=== PATIENT | female | born 1950 | race Caucasian/White ===

== ENCOUNTER → 2023-10-28 06:27 | Day surgery (SDC) | payer MEDICARE, OTHER, SELFPAY ==
[2023-10-28 08:16] VITALS: BP 116/69
[2023-10-28 08:32] VITALS: BMI 28.7
[2023-10-28 08:33] VITALS: BMI 28.7
[2023-10-28 09:41] VITALS: BP 104/60
[2023-10-28 09:45] VITALS: BP 122/66
[2023-10-28 10:00] VITALS: BP 99/48
== END ==
LOC: SDS 06:27
PROVIDERS: ATTENDING PHYSICIAN Internal Medicine Gastroenterology
DX: K22.2 Esophageal obstruction (principal); R13.10 Dysphagia, unspecified
CPT/HCPCS: 43249; C1726

== ENCOUNTER → 2023-12-22 09:15 | Outpatient (REF) | payer MEDICARE, OTHER, SELFPAY | LOC: HWRAD 09:15 | PROVIDERS: ATTENDING PHYSICIAN Internal Medicine Hematology & Oncology; FAMILY PHYSICIAN Family Medicine | DX: C34.11 Malignant neoplasm of upper lobe, right bronchus or lung (principal); D63.8 Anemia in other chronic diseases classified elsewhere; R59.0 Localized enlarged lymph nodes; Z45.2 Encounter for adjustment and management of vascular access device; R53.82 Chronic fatigue, unspecified; C79.31 Secondary malignant neoplasm of brain | CPT/HCPCS: 71260; Q9967 ==

== ENCOUNTER 2023-12-26 06:15 | Day surgery (SDC) | payer MEDICARE, OTHER, SELFPAY ==
[2023-12-26 09:46] VITALS: BMI 26.5
[2023-12-26 09:47] VITALS: BP 117/70
[2023-12-26 10:36] VITALS: BP 92/57
[2023-12-26 10:45] VITALS: BP 99/67
[2023-12-26 11:00] VITALS: BP 119/64
[2023-12-26 11:07] VITALS: BP 122/70
== END 2023-12-26 11:20 | disposition home or self-care (01) ==
LOC: SDS 06:15
PROVIDERS: ATTENDING PHYSICIAN Internal Medicine Gastroenterology
DX: K22.89 Other specified disease of esophagus (principal); T18.128A Food in esophagus causing other injury, initial encounter; Y93.89 Activity, other specified; K22.2 Esophageal obstruction; R13.10 Dysphagia, unspecified
CPT/HCPCS: 43249; 43247; 88305; C1726

== ENCOUNTER → 2024-01-13 13:54 | Outpatient (REF) | payer MEDICARE, OTHER, SELFPAY ==
[2024-01-13 14:10] VITALS: BP 112/74; BP_SYST 92
[2024-01-13 14:55] VITALS: BP 120/70; BP_SYST 70
[2024-01-13 15:13] VITALS: BP 120/70
== END ==
LOC: RADI 13:54
PROVIDERS: ATTENDING PHYSICIAN Internal Medicine Hematology & Oncology
DX: Z45.2 Encounter for adjustment and management of vascular access device (principal); Z92.21 Personal history of antineoplastic chemotherapy; Z85.118 Personal history of other malignant neoplasm of bronchus and lung
CPT/HCPCS: 36590; 77001

== ENCOUNTER 2024-01-22 06:19 | Day surgery (SDC) | payer MEDICARE, OTHER, SELFPAY ==
[2024-01-22 08:50] VITALS: BP 149/91
[2024-01-22 08:53] VITALS: BMI 25.4
--- NOTE | 2024-01-22 08:55 | PTCARENOTE ---
Attempted suicide at 12 years old. No suicidal thoughts recently.
[2024-01-22 09:55] VITALS: BP 145/78
[2024-01-22 10:00] VITALS: BP 143/79
[2024-01-22 10:01] VITALS: BP 145/78
[2024-01-22 10:15] VITALS: BP 143/86
[2024-01-22 10:30] VITALS: BP 140/76
== END 2024-01-22 10:40 | disposition home or self-care (01) ==
LOC: SDS 06:19
PROVIDERS: ATTENDING PHYSICIAN Internal Medicine Gastroenterology
DX: K22.70 Barrett's esophagus without dysplasia (principal); K22.2 Esophageal obstruction; K44.9 Diaphragmatic hernia without obstruction or gangrene; R13.10 Dysphagia, unspecified
CPT/HCPCS: 43249; C1726

== ENCOUNTER 2024-02-23 06:58 | Day surgery (SDC) | payer MEDICARE, OTHER, SELFPAY ==
[2024-02-23 10:00] VITALS: BP 122/84
[2024-02-23 10:15] VITALS: BMI 26.0
[2024-02-23 10:28] VITALS: BMI 26.0
[2024-02-23 11:15] VITALS: BP 104/67
[2024-02-23 11:16] VITALS: BP 104/67
[2024-02-23 11:30] VITALS: BP 121/87
[2024-02-23 11:55] VITALS: BP 127/76
== END 2024-02-23 12:05 | disposition home or self-care (01) ==
LOC: SDS 06:58
PROVIDERS: ATTENDING PHYSICIAN Internal Medicine Gastroenterology
DX: R13.10 Dysphagia, unspecified (principal); K44.9 Diaphragmatic hernia without obstruction or gangrene; K22.2 Esophageal obstruction; K22.70 Barrett's esophagus without dysplasia
CPT/HCPCS: 43249; C1726

== ENCOUNTER 2024-05-24 18:32 | Emergency (ER) | payer MEDICARE, OTHER, SELFPAY ==
[2024-05-24 18:35] VITALS: BP 144/95
[2024-05-24 19:14] VITALS: BMI 26.7
--- NOTE | 2024-05-24 21:17 | ED.MUSCINJ ---
HPI-Injury
General
Chief Complaint: Fall
Source: patient
Exam Limitations: none
Time Seen by Provider: 05/24/24 19:04
Nursing documentation reviewed up to this point in time: agreed with
History of Present Illness-Injury
Is this injury a work related problem?: No
Is pt an associate of [facility]/[place]?: No
Initial Injury comments:
Patient to ED for eval s/p trip and fall. States she fell outside of her bathroom, hit left side of face and head on hardwood floor. No LOC. Complains of pain to left face, neck right foot. Injury occurred just CARD BRUSHER
Past History
Past History
ED Past Medical History: Arrthythmia, Cancer and Other
ED Past Surgical History: Orthopedic (Ankle surgery)
Social History
Tobacco: Former smoker
Alcohol: None
Drug: None
Personal: Single
Living: with family
Review of Systems
Review of Systems
Allergies reviewed?: Yes
All Other Systems: ROS reviewed and negative except as documented in HPI and ROS
Constitutional: Reports no symptoms
EENT: Reports no symptoms
Respiratory: Reports no symptoms
Cardiac: Reports no symptoms
ABD/GI: Reports no symptoms
Musculoskeletal: Reports joint pain (face, neck, right foot pain)
Skin: Reports other (hematoma to left orbit, left side of face. Abrasion to right foot)
Neurological: Reports no symptoms
Psychiatric: Reports no symptoms
Musculoskeletal Injury Exam
Musculoskeletal Injury Exam
Left Face:
Pain with Movement?: Moderate
Tender to palpation?: Moderate
Soft tissue swelling?: Moderate
External deformity and angulation?: None
Joint effusion?: None
Contusion?: Moderate
Hematoma-local bleeding into tissue?: Moderate
Strain- Sprain- Tear (Connective tissue injury)?: None
Crepitus with movement?: No
Joint instability?: No
Malalignment/deformity?: No
Range of motion: Full
Distal skin color and temperature: normal-warm & good color
Capillary Refill: normal
Normal distal neurovascular exam?: Yes
Right Foot:
Pain with Movement?: Mild
Tender to palpation?: Mild
Soft tissue swelling?: None
External deformity and angulation?: None
Joint effusion?: None
Contusion?: Moderate
Hematoma-local bleeding into tissue?: Mild
Strain- Sprain- Tear (Connective tissue injury)?: Mild
Crepitus with movement?: No
Joint instability?: No
Malalignment/deformity?: No
Range of motion: Full
Distal skin color and temperature: normal-warm & good color
Capillary Refill: normal
Normal distal neurovascular exam?: Yes
Peripheral Pulses: posterior tibial (right): 3+ and dorsalis pedis (right): 3+
Phy Exam
General Physical Exam
General Presentation: well appearing and no apparent distress
General age: appears stated age
General Skin: warm and dry
General Habitus: normal
General Mental: alert
Neurological Exam
Neurological Exam: alert, oriented x3, CN II-XII intact and no motor deficits
[place] Coma Scale
Eye Opening: Spontaneous
Verbal Response: Oriented
Motor Response: Obeys Commands
GCS Total Score: 15
Musculoskeletal Exam
Musculoskeletal Exam: neuro vasc intact and other (Moving all extremities. No hip, knee, ankle, shoulder ,elbow, wrist pain)
Skin Exam
Skin Exam: normal color, warm/dry, no rash and other (hematoma to left orbit, left cheek)
Psychiatric Exam
Psychiatric Exam: normal mood/affect
Injury Course
Orders/Labs/Results
Orders:
Orders
05/24/24 18:45
CT Head W/o Iv Contrast Urgent
Comment: on eliquis
Reason For Exam: fall
05/24/24 19:24
Facial Bones wo Contrast CT [CT Facial Bones W/o Iv Contras] Urgent
Comment:
Reason For Exam: trauma
Foot, Right 3 View [CR Foot - Right Min 3 Views] Urgent
Comment:
Reason For Exam: fall
*Radiology
Radiology exam reviewed: radiology read reviewed
*Pulse Oximetry
Patient hypoxic: no
*Critical Care Note
Total Time (30-74mins, 75-104mins- exclusive of procedures): Not Applicable
ED Attending Note
-
Portions of this chart may have been created with voice recognition software.� Occasional wrong word or��sound alike� substitutions may have occurred due to the inherent limitations of voice recognition software.
Discharge Plan
Departure
Patient Disposition: Home (Routine Discharge)
Date of Disposition: 05/24/24
Time of Disposition: 21:15
Patient with high blood pressure during this ER visit?: No
Condition: Good
Covid-19: Not Applicable
Discharge Problem:
Head injury, Contusion of foot
Instructions: Head Injury in Adults (DC), Contusion (DC), Preventing falls in adults, Using Cold for Pain
Prescriptions:
No Action
Eliquis 5 mg Tablet
5 mg PO BID Qty: 0 0RF
atorvastatin 10 mg Tablet
40 mg PO HS
levothyroxine 112 mcg tablet
112 mcg PO DAILY@0630
potassium chloride 10 mEq Tablet Extended Release
10 meq PO DAILY
ferrous sulfate 300 mg (60 mg iron)/5 mL Liquid
300 mg PO Q OTHER DAY
lansoprazole 30 mg Capsule,Delayed Release(Dr/Ec)
30 mg PO DAILY
Cefuroxime
500 mg PO DAILY
amiodarone 200 mg Tablet
200 mg PO DAILY
furosemide 20 mg Tablet
10 mg PO BID
Referrals:
UNKNOWN - PT DOES,NOT KNOW [Family Provider] -
Activity Restrictions/Additional Instructions:
Follow up with your family doctor.
Interventions
Interventions:
*Risk Screen - Suicide Last Done: 05/24/24 18:35
*General Assessment Last Done: 05/24/24 18:35
*Neglect/Abuse Screening Last Done: 05/24/24 18:35
ED- Fall Risk Assessment Last Done: 05/24/24 19:16
*ED COVID-19 Vaccine History Last Done: 05/24/24 18:42
ED-Musculoskeletal Assessment Last Done: 05/24/24 19:16
ED- Neurological Assessment Last Done: 05/24/24 19:16
ED-Skin Assessment Last Done: 05/24/24 19:16
Discharge Date and Time
Print Language: UGANDAN
== END 2024-05-24 21:50 | disposition home or self-care (01) ==
LOC: EMR 18:32
PROVIDERS: EMERGENCY PHYSICIAN Emergency Medicine; FAMILY PHYSICIAN Family Medicine
DX: S90.31XA Contusion of right foot, initial encounter (principal); S00.12XA Contusion of left eyelid and periocular area, initial encounter; S09.90XA Unspecified injury of head, initial encounter; S90.811A Abrasion, right foot, initial encounter; W01.0XXA Fall on same level from slipping, tripping and stumbling without subsequent striking against object, initial encounter; Y92.008 Other place in unspecified non-institutional (private) residence as the place of occurrence of the external cause; D64.9 Anemia, unspecified; I48.91 Unspecified atrial fibrillation; Z85.841 Personal history of malignant neoplasm of brain; Z85.118 Personal history of other malignant neoplasm of bronchus and lung; Z87.891 Personal history of nicotine dependence; Z79.01 Long term (current) use of anticoagulants; Z88.2 Allergy status to sulfonamides; Z88.8 Allergy status to other drugs, medicaments and biological substances
CPT/HCPCS: 99284; 70450; 70486; 73630

== ENCOUNTER 2024-06-03 22:59 | Inpatient (IN) | payer MEDICARE, OTHER, SELFPAY ==
[2024-06-03] VITALS (8 sets, daily range): BP systolic 85–127; BP diastolic 55–76; BMI 27.9
[2024-06-03 17:52] LABS: Hematocrit 39.6 % (37.0-47.0); Mean Corp Hgb Conc. 35.4 g/dL (33.0-37.0); Mean Corpuscular Hgb 30.8 pg (27.0-31.0); Mean Platelet Volume 10.2 fL (7.4-10.4); Platelet Count 199 10^3/uL (130-400); Red Blood Cell Count 4.55 10^6/uL (4.20-5.40); Red Cell Dist. Width 14.7 % (11.5-14.5); White Blood Cell Count 14.4 10^3/uL (4.8-10.8)
[2024-06-03 18:06] LABS: NT-proBNP 737 pg/ml; Troponin I < 0.012 ng/ml
[2024-06-03 18:12] LABS: ALT (SGPT) 37 U/L (0-35); AST (SGOT) 20 U/L (14-36); Albumin 3.6 g/dl (3.5-5.0); Alkaline Phosphatase 107 U/L (38-126); Blood Urea Nitrogen 39 mg/dl (7-17); Calcium 9.2 mg/dl (8.4-10.2); Carbon Dioxide 17 mmol/L (22-30); Chloride 94 mmol/L (98-107); Potassium 4.4 mmol/L (3.5-5.1); Sodium 129 mmol/L (135-145); Total Protein 6.1 g/dl (6.3-8.2); eGFR > 60.00
[2024-06-03 18:23] LABS: Absolute Neutrophils -Man Diff 13.9 10^3/uL (1.4-6.5); Band Neutrophils 15 % (0-3); Segmented Neutrophils 82 % (42-75)
[2024-06-03 18:25] LABS: Lymphocytes 1 % (20-51)
[2024-06-03 18:27] LABS: Monocytes 2 % (2-9); Normal RBC Morphology Yes; Platelets Checked Yes; Total Cells Counted 100
--- NOTE | 2024-06-03 19:00 | ED.GENMED ---
History of Present Illness
General
Chief Complaint: Change in Mental Status
Source: patient and family
Time Seen by Provider: 06/03/24 18:38
History of Present Illness
History of Present Illness:
73-year-old female with past medical history of lung cancer (reportedly in remission), recent craniotomy for brain tumor removal back in March, atrial fibrillation presenting to the emergency department with family for evaluation of reported gradual
decline in patient's functioning and mental status over the last 2+ weeks. Since patient's tumor removal she has had speech difficulties and some cognitive issues but this seems to be worsening. Patient had a fall about a week and a half ago where
she was evaluated here for with no acute abnormalities found however continued progression of weakness, cough, shortness of breath, and intermittent confusion prompted sister to bring patient to the ER for further evaluation. Patient denies any
fevers but does states she will often have a yellowish-orange sputum production. Patient is on prednisone which she has been on since her surgery back in March, sister noting she is not scheduled to stop this until she at least has her MRI which is
scheduled for end of this month. Patient's primary care also prescribed her an antibiotic about 10 days ago which patient finished with some symptomatic improvement but then symptoms restarted and patient was given a prescription for a
cephalosporin which has not provided any relief.
Past History
Past History
ED Past Medical History: Arrthythmia, Cancer and Other
ED Past Surgical History: Brain and Orthopedic (Ankle surgery)
Social History
Tobacco: Former smoker
Alcohol: None
Drug: None
Personal: Single
Living: with family
Review of Systems
Review of Systems
All Other Systems: ROS reviewed and negative except as documented in HPI and ROS
Phy Exam
Physical Exam
Physical Exam:
GENERAL: Alert , in no apparent distress, pleasant and answers questions appropriately
HEAD: Older appearing ecchymosis along the left side of her face
EYE: Clear conjunctiva
NECK: Supple
ENT: o/p clr, mmm.
CARDIAC: Intermittently tachycardic rate and rhythm with highest heart rate around 106 on telemetry
LUNGS: Rhonchorous cough, diffuse rhonchi within the posterior lung yoder, no wheezing, no accessory muscle use or tachypnea
ABDOMEN: Soft, without focal tenderness, no r/g, no cvat
NEUROLOGICAL: Alert and oriented x 3
SKIN: Warm and dry, skin intact.
MUSCULOSKELETAL: Bilateral ankle edema, well perfused.
PSYCH: Normal and appropriate interaction.
Scores
Heart Failure Risk
Heart Failure Risk Score: Not Applicable
Heart Score for Chest Pain Patients
STEMI patient?: Not applicable
Withdrawal Assessment of Alcohol
Withdrawal Assessment Completed?: Not applicable
Course
Orders/Labs/Results
Orders:
Orders
06/03/24 17:26
Electrocardiogram (*1) Urgent
Reason for Study: Other
Other Reason for Exam: lower extremity swelling with cough
EKG- Treatment ONCE
CXR2 [CR Chest - 2 Views ] Urgent
Comment:
Reason For Exam: cough with hx lung and brain ca
06/03/24 17:35
Complete Blood Count/With Diff Urgent
Comprehensive Metabolic Panel Urgent
Manual Differential Urgent
NT-proBNP Urgent
Troponin I Urgent
06/03/24 18:56
CT Chest Pe Study Urgent
Comment:
Reason For Exam: hypoxia, AMS, hx lung cancer, cough
06/03/24 18:59
Cefepime HCl [Maxipime] 2,000 mg IV NOW STA
06/03/24 19:05
COVID-19 Antigen Urgent
Source: Nasal Swab
Lactic Acid Q4H
Comment: CANCEL 2nd LACTIC ACID IF 1st LACTIC ACID IS LESS THAN 2
Procalcitonin Urgent
PCT Algorithmm Indication: Sepsis
Blood Culture Routine
BRENDA Source: Blood/Venous
Specimen Description:
Blood Culture Urgent
BRENDA Source: Blood/Venous
Specimen Description:
06/03/24 19:16
Vancomycin [Vancocin] 2,000 mg 0.9% Sodium Chloride 500 ml [Nss] 500 ml IV NOW
06/03/24 19:22
0.9% Sodium Chloride 1000 ml [Nss] 2,300 ml IV NOW STA
06/03/24 21:51
Admit/Transfer Patient As Directed
Co-Sign Provider:
Level of Care: Inpatient admission
Assign to:: IMU- Intermediate Care
Physician / Group: Hospitalist
Diagnosis: Pneumonia
Reason for Hospitalization: Hypoxia, pneumonia
Expected length of stay greater than two midnights?: Yes
ELOS- Estimated Length of Stay in days: 2
I certify the patient meets the requirements for IP care: Yes
06/03/24 21:52
Code Status As Directed
Resuscitation Status: Full Code
PRN Pain Medication Management As Directed
May give lesser potent ordered pain med per pt: Yes
preference::
Protocol:: Medication orders for pain may be administered in a
manner that supports deferring to patient preference
when the pt is:
- Requesting an ordered lesser potent pain medication.
Least to most potent pain medications are defined
as: acetaminophen < NSAID < tramadol < opioids
(morphine, oxycodone, hydromorphone).
- Requesting a lesser dose of the same medication IF
ORDERED.
- Requesting a less intrusive route of administration
if both routes are prescribed by the provider (PO <
IV).
06/03/24 22:00
Atorvastatin [Lipitor] 10 mg PO HS
Flush (0.9% Sodium Chloride) [Flush (Nss)] See Dose Instructions IV PER PROTOCOL
06/03/24 22:49
Lactic Acid Q4H
Comment: CANCEL 2nd LACTIC ACID IF 1st LACTIC ACID IS LESS THAN 2
06/04/24 01:54
Acetaminophen [Tylenol] 650 mg PO Q4HPRN PRN
Albuterol Nebs [Ventolin Nebules] 2.5 mg INH R Q4HPRN PRN
Guaifenesin/Dextromethorphan [Robitussin Dm] 5 ml PO Q4HPRN PRN
Ondansetron Injectable [Zofran] 4 mg IV Q6HPRN PRN
06/04/24 01:54
Consult Notification Routine
Specialty to Notify: Oncology
Date consulting provider notified: 06/04/24
Time consulting provider notified: 07:21
Notified:: Provider
ONCOLOGY CONSULT Routine
Consulting Provider: Ashley Rojas
Was physician already notified: No
Reason for consult: recurrence of metastatic lung ca
PULMONARY CONSULT Routine
Consulting Provider: Jamison Jaffe
Was physician already notified: Yes
Reason for consult: complicated pna, recurrent lung ca?
VTE Contraindication Routine
VTE Mechanical Device Contraindication: Medical Contraindication
Pharmocologic Contraindication: Medical Contraindication
Respiratory Culture/Gram Stain Routine
BRENDA Source: Sputum
Specimen Description:
Activity As Directed
Activity Level: Out of Bed-Early Mobility
Intake/ Output As Directed
Frequency: Per unit guidelines
Vital Signs As Directed
Frequency: Per unit guidelines
Weight As Directed
Frequency: Once
Comment: on admission
O2 Therapy [RESP] Routine
Nasal Cannula Liter Flow: 4 LPM
Titrate/Wean O2 to maintain O2 sat greater than (%): 93
Special Instructions: Wean as tolerated
Pt Eval And Treat Routine
Activity Level: With Assistance
06/04/24 02:00
Cefepime HCl [Maxipime] 2,000 mg IV Q8H
06/04/24 05:29
Basic Metabolic Panel IN AM
Complete Blood Count/No Diff IN AM
Serum Osmolality IN AM
TSH Reflex To Free T4 IN AM
06/04/24 06:00
Levothyroxine [Synthroid] 112 mcg PO DAILY @ 0600
06/04/24 08:00
Amiodarone [Pacerone] 200 mg PO DAILY
Apixaban [Eliquis] 5 mg PO BID
Levetiracetam [Keppra] 500 mg PO BID
Pantoprazole [Protonix] 40 mg PO DAILY
06/04/24 09:49
Urine Osmolality Random [Osmolality, Random Urine] Routine
Date Specimen was Collected: 06/04/24
Time Specimen was Collected: 09:41
Legionella Urinary Antigen Routine
BRENDA Source: Urine
Specimen Description:
Abnormal Lab Results
06/03/24 06/03/24
17:35 19:05
WBC 14.4 H 10^3/uL
(4.8-10.8)
RDW 14.7 H %
(11.5-14.5)
Abs Neuts (Manual) 13.9 H 10^3/uL
(1.4-6.5)
Segmented Neutrophils 82 H %
(42-75)
Band Neutrophils 15 H %
(0-3)
Lymphocytes (Manual) 1 L %
(20-51)
Sodium 129 L mmol/L
(135-145)
Chloride 94 L mmol/L
(98-107)
Carbon Dioxide 17 L mmol/L
(22-30)
BUN 39 H mg/dl
(7-17)
Lactic Acid 2.5 H mmol/L
(0.7-2.0)
ALT 37 H U/L
(0-35)
Total Protein 6.1 L g/dl
(6.3-8.2)
Procalcitonin 0.59 H ng/ml
(0.0-0.25)
06/03/24 17:35
06/03/24 17:35
Vital Signs
Initial and Last Documented VS:
Initial Vital Signs
Temp Pulse Resp BP Pulse Ox
98.3 F 107 18 101/76 98
06/03/24 17:11 06/03/24 17:11 06/03/24 17:11 06/03/24 17:11 06/03/24 17:11
Last Documented Vital Signs
Temp Pulse Resp BP Pulse Ox
97.9 F 91 17 91/61 94
06/04/24 11:20 06/04/24 12:52 06/04/24 11:45 06/04/24 12:52 06/04/24 12:55
Cylinder Inspector And Tester consulted with Physician
Cylinder Inspector And Tester consulted with physician?: Yes
Name of Physician Consulted: Anai
MDM/Problems Addressed
Differential Diagnosis Includes:
Pneumonia, PE, recurring malignancy, sepsis, electrolyte derangement
MDM/Problems Addressed:
73-year-old female presenting to the emergency department for evaluation of multitude of symptoms but patient noting biggest concern is cough, shortness of breath and generalized weakness. Patient has been on 2 separate antibiotics with no
improvement of her cough. Has a noted history for cancer as well as taking daily steroids since her tumor removal. Patient is afebrile here however during my exam patient is hypotensive, mildly tachycardic and had an oxygen saturation dropped to
82% on room air. Patient was immediately placed on nasal cannula at 2 L which responded to about 86% thus increasing to 4 L with good response between 92 and 96%. Patient's lungs have diffuse rhonchi and given her presenting symptoms I suspect
pneumonia to be very high on the differential. Given her recent surgery combined with her cancer history will obtain CTA to rule out PE. Labs have been initiated in triage which reveal a leukocytosis, bandemia, prerenal azotemia. Patient has
negative troponin and BNP. Chest x-ray was also ordered which did not show any acute abnormalities. Given her history combined with presentation today I do feel patient is most likely to be admitted for further evaluation.
Chronic conditions affecting care: Immunosuppressed and Cancer
*Radiology
Radiology exam reviewed: radiology read reviewed
*Pulse Oximetry
Patient hypoxic: yes
*EKG
Interpreted by ED Provider?: Yes
Comparison EKG: changes noted
Heart Rate: 106
Rate: tachycardiac
Rhythm: sinus
[place]: normal axis
Ischemia: T-wave inversion (Leads I and aVL)
*Nurse Companion Interpretation
Rate: tachycardiac
Rhythm: sinus
*Critical Care Note
Total Time (30-74mins, 75-104mins- exclusive of procedures): 30
comment:
Critical care statement: A total of 30 minutes of critical care time was provided for this patient. This includes management of unstable vital signs, evaluation of the patient at bedside, reviewing the patient's pertinent medical records, discussion
with consultants, review of old EKGs and review of pertinent medical records. This time with separate from time utilized to perform the aforementioned documented procedures
Data Reviewed
Review of Other/Old Records Reveals: Labs and Radiology Studies
Source: patient and family
Patient Management
Discussion with other providers: Hospitalist
Escalation/DeEscalation of care consider admission/obs:
Patient's chest CT is concerning for recurrence of right lung pulmonary neoplasm with new pulmonary metastatic disease. There is also likely underlying infectious/inflammatory bronchiolitis throughout the right lower lobe. Given patient's
suspected infectious etiology will continue with antibiotics but will also need oncology consultation. Patient remains slightly hypotensive despite IV fluid resuscitation. Initial plan will be for likely IMU/ICU for close monitoring and possible
need for pressors if patient remains hypotensive. Hospitalist team was notified and accepts for continued evaluation and treatment. I did update patient and provided her family with a printout of CT report. They are previously known to Dr. Wheeler
from oncology.
ED Attending Note
-
Portions of this chart may have been created with voice recognition software.� Occasional wrong word or��sound alike� substitutions may have occurred due to the inherent limitations of voice recognition software.
Discharge Plan
Departure
Patient Disposition: Admit
Date of Disposition: 06/03/24
Time of Disposition: 20:34
Presentation/result/management discussed w/ accepting MD/DO: Hospitalist
Discharge Problem:
Pneumonia, Sepsis, Hypoxia
Interventions
Interventions:
*Risk Screen - Suicide Last Done: 06/03/24 17:11
*Neglect/Abuse Screening Last Done: 06/03/24 17:11
ED- Fall Risk Assessment Last Done: 06/03/24 19:15
*ED COVID-19 Vaccine History Last Done: 06/04/24 01:10
*Nursing Disposition Last Done: 06/04/24 01:04
ED- Pulmonary Assessment Last Done: 06/03/24 19:15
ED- Neurological Assessment Last Done: 06/03/24 19:15
ED- Cardiac Assessment Last Done: 06/03/24 19:15
Discharge Date and Time
Discharge Date/Time: 06/04/24 01:04
[2024-06-03] MEDS: MAXIPIME 2000 MG IV (19:13)
[2024-06-03 19:28] LABS: Lactic Acid 2.5 mmol/L (0.7-2.0)
[2024-06-03 19:36] LABS: COVID-19 Antigen Negative (Negative)
[2024-06-03] MEDS: VANCOCIN 540 MG IV (19:39)
[2024-06-03] MEDS: NSS 2300 ML IV (19:41)
[2024-06-03 20:04] LABS: Procalcitonin 0.59 ng/ml (0.0-0.25)
--- NOTE | 2024-06-03 21:32 | HPS.HSE ---
Family Physician
-
Family Physician: Saul Long
Chief Complaint
-
Weakness and lethargy, cough
History of Present Illness
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
to the emergency department with worsening cough and lethargy.
Patient reported that she had scar tissue resection (craniotomy) at [facility] in March. She is otherwise been feeling well since then. She had a recent fall with minor trauma to the left face. However about 2 weeks ago she noticed a persistent
cough. She followed up with her primary care doctor who prescribed 1 week of antibiotics (cefuroxime). She did not particularly improve and she was prescribed a second week. During taking this secondary the patient noticed increase production
from cough. She also noticed that at physical therapy she felt more tired than usual. She also had slightly increased confusion. Patient denied having fevers or chills at home. This cyst was approximately reported that she did have bilateral
lower extremity swelling. She was started on low-dose leg relief. In the past she had been on low-dose diuretics but was discontinued due to improvement peripheral edema.
Upon arrival in the ED the patient was hypoxic to 80s on room air. Blood pressure was initially soft but at my visit was 117/58, temperature was 98.3, pulse was 96. ECG w/ sinus tach. Trop negative. Chest x-ray was clear. She however had a CT of
the chest which showed a spiculated 1.5 cm left lung nodule as well as a right lung groundglass opacity with nodules concerning for lung cancer with mets. There is also concern for superimposed infection. She had leukocytosis to 14,000 hemoglobin
and blood counts were normal. Sodium was 129 and a BUN was 39. The rest of her chemistries were within normal limits. Lactate was 2.5, troponin was 0.012. Procal was slightly elevated. COVID test was negative.
Medical History
Past Medical History
Past Medical History: Reports Arrhythmia (pAFIB), CHF (HFpEF), Hypercholesterolemia and Hypothyroidism
Additional Past Medical History:
Lung Ca previously in remission
Seizure d/o
GERD
Past Surgical History: Reports Brain
Social History
Tobacco: Former Smoker
Alcohol: None
Drug: None
Personal: Single
Living: With Family
Employment: Not Employed
Family History
Family History: Not pertinent
Allergies / Home Medications
Allergies reflects when Allergies were last updated in [employer].
Home Medications with original date entered in [employer]
Allergy/Medication List:
Allergies
Allergy/AdvReac Type Severity Reaction Status Date / Time
paclitaxel [From Taxol] Allergy Anaphylaxis Verified 06/03/24 17:21
Sulfa (Sulfonamide Allergy Unknown Verified 06/03/24 17:21
Antibiotics)
Home Medications
apixaban 5 mg tablet (Eliquis) 5 mg PO BID Blood Clot Prevention/Tx #0 tabs 06/19/23
atorvastatin 10 mg tablet 10 mg PO HS High Cholesterol 08/01/23
levothyroxine 112 mcg tablet 112 mcg PO DAILY Thyroid 09/18/23
amiodarone 200 mg tablet 200 mg PO DAILY 02/23/24
cefuroxime axetil 500 mg tablet 500 mg PO BID 02/23/24
furosemide 20 mg tablet 20 mg PO BID 02/23/24
dexamethasone 2 mg tablet 2 mg PO BID 06/03/24
ferrous sulfate 220 mg (44 mg iron)/5 mL oral solution 220 mg PO Q48H 06/03/24
levetiracetam 500 mg tablet 500 mg PO BID 06/03/24
omeprazole 40 mg capsule,delayed release 40 mg PO TID 06/03/24
potassium chloride 20 mEq/15 mL oral liquid 10 meq PO BID 06/03/24
Review of Systems
-
History Source: Patient and Family
Constitutional: Reports Fatigue
EENT: Reports No Symptoms
Respiratory: Reports Cough
Cardiac: Reports Other (peripheral edema)
Abdomen/GI: Reports No Symptoms
: Reports No Symptoms
Musculoskeletal: Reports Edema
Skin: Reports No Symptoms
Neurological: Reports No Symptoms
Endocrine: Reports No Symptoms
Hematologic/Lymphatic: Reports No Symptoms
Psych: Reports No Symptoms
Physical Exam
Vital Signs
Vital Signs
Temp Pulse Resp BP Pulse Ox
98.3 F 98 23 117/58 98
06/03/24 17:11 06/03/24 21:00 06/03/24 21:00 06/03/24 21:00 06/03/24 21:22
Physical Exam
General: Conversant
HEENT: NormoCephalic, Anicteric, Atraumatic (Left facial ecchymoses), PERRLA and Oxygen
Respiratory: Decreased Breath Sounds
Cardiac: S1/S2 and Regular Rhythm
Breast: Deferred by me
GI: Soft, Non Tender, Non Distended and Normal Bowel Sounds
Rectal: Deferred by Provider
Genito-urinary: Deferred by me
Musculoskeletal: No Clubbing, No Cyanosis, Edema, Left Lower Extremity and Edema, Right Lower Extremity
Skin: Warm
Neuro: AO x 3
Hematologic/Lymphatic: No Lymphadenopathy
Psych: Calm
Laboratory Results
-
06/03/24 17:35
06/03/24 17:35
Laboratory Results
Lactic Acid 2.5 mmol/L (0.7-2.0) H 06/03/24 19:05
Total Bilirubin 1.0 mg/dl (0.2-1.3) 06/03/24 17:35
AST 20 U/L (14-36) 06/03/24 17:35
ALT 37 U/L (0-35) H 06/03/24 17:35
Alkaline Phosphatase 107 U/L (38-126) 06/03/24 17:35
Troponin I < 0.012 ng/ml 06/03/24 17:35
Data Reviewed
-
Diagnostic Radiology: Image Personally Visualized and interpreted
CT Scan: Report Reviewed by me
Medical Tests (Nuc Med, Echo, EKG etc): Image Personally Visualized and interpreted
Lab Data: Labs Reviewed by me
Impression/Plan
-
IMPRESSION:
PLAN:
1. Hypoxia - Patient with likely recurrent metastatic lung ca with super-imposed infection. Tried on oral abx as an outpatient for 2 weeks with no improvements. Productive cough and leukocytosis without fevers or chills. Negative COVID. Soft BP
in ED with boderline lasix. There is some peripheral edema but no significant pulmonary edema. BNP is non-diagnostic for CHF.
- admit to IMU
- blood cultures, sputum culture, cytology urine legionella ag
- continue vanc and cefepime for now
- supportive care with supplemental oxygen and cough suppression
- prn nebs
- incentive spirometry
- pulmonary
2. Lung Ca - History of Lung CA in remission. Followed by Dr. Arango. Last CT was free of Ca about 6 months ago. But has been having a subacute to chronic non-productive cough that turned productive 4/5 days ago. No hemoptysis. Hyponatremic.
CT suggestive of metastatic dz.
- oncology consultation
- supportive care for now.
3. AFIB - rate controlled
- continue amiodarone
- continue eliquis
4. CHF - CHF w/ pEF. BNP is non-diagnostic. Clinically she apears slightly overloaded. She has just received 30ml/kg NS.
- no iv fluids, hold lasix tonight
- check tsh
- restart lasix 20 mg bid tomorrow if BP stable.
5. Hyponatremia - euvolemic to hypervolemic.
- fluid restriction for now
- check urine osmolality
- tsh as above
DVT PPX - on eliquis
Code Status - She clearly expresses wish to be full code.
[2024-06-03 23:11] LABS: Lactic Acid 1.4 mmol/L (0.7-2.0)
[2024-06-04] VITALS (22 sets, daily range): BP systolic 85–132; BP diastolic 51–83; PULSE 92; O2SAT 98; BMI 27.9; BMI 27.2
[2024-06-04] MEDS: LIPITOR PO (03:13)
[2024-06-04] MEDS: MAXIPIME 2000 MG IV ×3 (03:21→17:26)
[2024-06-04] MEDS: STERILE WATER FOR INJECTION 10 ML IV ×3 (03:22→17:26)
[2024-06-04 05:49] LABS: Osmolality Serum 320 mOsm/kg (275-300)
[2024-06-04 05:55] LABS: Blood Urea Nitrogen 27 mg/dl (7-17); Calcium 8.5 mg/dl (8.4-10.2); Carbon Dioxide 30 mmol/L (22-30); Chloride 102 mmol/L (98-107); Estimated Creatinine Clearance 72 ml/min; Glucose 406 mg/dl (70-99); Hematocrit 41.2 % (37.0-47.0); Hemoglobin 14.3 g/dL (12.0-16.0); Mean Corp Hgb Conc. 34.7 g/dL (33.0-37.0); Mean Corpuscular Hgb 31.8 pg (27.0-31.0); Mean Corpuscular Volume 91.8 fL (81.0-99.0); Mean Platelet Volume 10.5 fL (7.4-10.4); Platelet Count 141 10^3/uL (130-400); Potassium 3.4 mmol/L (3.5-5.1); Red Blood Cell Count 4.49 10^6/uL (4.20-5.40); Red Cell Dist. Width 15.1 % (11.5-14.5); Sodium 140 mmol/L (135-145); White Blood Cell Count 9.9 10^3/uL (4.8-10.8); eGFR > 60.00
[2024-06-04] MEDS: SYNTHROID 112 MCG PO (06:07)
[2024-06-04 06:39] LABS: Hepatitis C Antibody Negative (Negative)
[2024-06-04 06:58] LABS: Free T4 0.87 ng/dl (0.78-2.19)
--- NOTE | 2024-06-04 08:17 | CON.PUL ---
Consultation
Consultation Request
Date/Time Consultation Requested: 06/04/2024 015
Date/Time Consultation Performed: 06/04/2024 - 08
Requesting Provider: Dr. Medellin
Performing Provider: Dr. Jaffe
Reason for Consultation: Hypoxia/Abnormal Chest CT/PNA
Medical History
-
Chief Complaint: Weakness, lethargy + cough
History of Present Illness:
73-year-old female with a past medical history of COPD, right-sided NSCLC (adenocarcinoma) s/p chemo (last chemotherapy given in 2018) + XRT with mets to brain s/p gamma knife radiation, history pneumonia, esophageal stricture s/p esophageal
dilation (September 2023), paroxysmal A-fib on Eliquis, hypothyroidism and history of melanoma who presents with AMS, cough, lower extremity swelling + weakness. She recently fell in her bathroom on 05/24/2024 and has left-sided periorbital
swelling/bruising. Head/facial bone CT from 05/24/2024 shows no acute intracranial abnormality with evidence of left temporal craniotomy. Also no facial bone fracture. Her cough has been ongoing for about 2-3 weeks now. She saw her PCP recently
who prescribed a week of antibiotics (cefuroxime). Second week was prescribed due to minimal improvement. She is also been feeling more confused and lethargic lately. No fevers or chills at home. Lower extremity swelling has also been worsening
as per the patient's sister, Isela. In the ER she was afebrile to 98.3 �F, tachycardic to 107 bpm, breathing at 18-24 breaths/min, BP 101/76 and saturating 98% on room air. Labs showed leukocytosis to 14.4, 15% bands, sodium 129, serum
bicarbonate level 17, lactate 2.5, ALT 37, proBNP 737, troponin negative at <0.012, procalcitonin elevated at 0.59, and COVID antigen negative. Blood cultures were collected. CXR showed RUL scarring with no acute cardiopulmonary process. CT of
the chest then done showing no acute PE showing concern for recurrent right lung metastatic disease with superimposed infectious/inflammatory bronchiolitis throughout the right lower lobe. Patient given IVF with 2.3 L of NS 0.9%, cefepime and IV
vancomycin. Patient admitted to the IMU under the hospitalist and pulmonary consulted for additional management/recommendations.
When I saw the patient she was sitting in a chair, on 2 L/min nasal cannula, saturating 93%. Heart rate 92 and BP 99/65. Patient's sister, Isela, at bedside, and all questions were answered. Patient feels okay although still has a cough and
feels weak. She denies chest pain, CHIRINOS, abdominal pain, nausea, fevers or chills.
PMHx: COPD, history of right lung adenocarcinoma s/p chemo + XRT, history of pneumonia, esophageal stricture s/p EGD, paroxysmal A-fib on Eliquis, hypothyroidism, history of food impaction (12/2019), history of melanoma, voice hoarseness
PSHx: Left-sided broken ankle s/p pins + plate placement, melanoma s/p excision, esophageal dilation (09/2023)
Past Medical History
Past Medical History: Other (Above as per HPI)
Past Surgical History: Other (Above as per HPI)
Social History
Tobacco: Former Smoker ([id number] history, quit 2018)
Alcohol: None
Drug: None
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
Family History
Family History: CAD (Mother), Cancer (Father: Prostate cancer; mother: History of esophageal cancer; Sister: Melanoma) and Hypertension (Sister)
Allergies / Home Medications
Allergies
Allergy/AdvReac Type Severity Reaction Status Date / Time
paclitaxel [From Taxol] Allergy Anaphylaxis Verified 06/03/24 17:21
Sulfa (Sulfonamide Allergy Unknown Verified 06/03/24 17:21
Antibiotics)
Home Medications
�Medication �Instructions �Recorded �Confirmed �Last Taken �Type
apixaban 5 mg tablet (Eliquis) 5 mg PO BID Blood Clot 06/19/23 06/03/24 06/03/24 Rx
Prevention/Tx #0 tabs
atorvastatin 10 mg tablet 10 mg PO HS High Cholesterol 08/01/23 06/03/24 06/02/24 History
levothyroxine 112 mcg tablet 112 mcg PO DAILY Thyroid 09/18/23 06/03/24 06/03/24 History
amiodarone 200 mg tablet 200 mg PO DAILY 02/23/24 06/03/24 06/03/24 History
cefuroxime axetil 500 mg tablet 500 mg PO BID 02/23/24 06/03/24 06/03/24 History
furosemide 20 mg tablet 20 mg PO BID 02/23/24 06/03/24 06/03/24 History
dexamethasone 2 mg tablet 2 mg PO BID 06/03/24 06/03/24 06/03/24 History
ferrous sulfate 220 mg (44 mg 220 mg PO Q48H 06/03/24 06/03/24 Unknown History
iron)/5 mL oral solution
levetiracetam 500 mg tablet 500 mg PO BID 06/03/24 06/03/24 06/03/24 History
omeprazole 40 mg capsule,delayed 40 mg PO TID 06/03/24 06/03/24 06/03/24 History
release
potassium chloride 20 mEq/15 mL 10 meq PO BID 06/03/24 06/03/24 06/03/24 History
oral liquid
Review of Systems
-
History Source: Patient
All other systems: Negative unless noted (12 point ROS performed and is negative unless mentioned above.)
Vitals / Labs / Diagnostic Testing
Vital Signs
Temp Pulse Resp BP Pulse Ox
97.5 F 87 16 98/60 95
06/04/24 08:28 06/04/24 08:00 06/04/24 08:00 06/04/24 08:00 06/04/24 08:00
Lab Data
06/04/24 05:29
06/04/24 05:29
Diagnostic Testing:
Physical Exam
-
HEENT: Normocephalic and Anicteric
Cardiovascular: S1/S2 and Peripheral Edema (+2 lower extremity pitting edema (L >R))
Respiratory: Wheeze (negative), Rales (Bilaterally), Rhonchi (Bilaterally) and Non-Labored Respirations
GI: Soft, Non Distended, Non Tender and Normal Bowel Sounds
Neurology: AO x 3 and Tremors (negative)
Skin: Warm and Dry
General: Respiratory Distress (negative), Comfortable, Chills (negative) and Sweats (negative)
Assessment
-
Assessment: 73-year-old female with a past medical history of COPD, right-sided NSCLC (adenocarcinoma) s/p chemo (last chemotherapy given in 2018) + XRT with mets to brain s/p gamma knife radiation, history pneumonia, esophageal stricture s/p
esophageal dilation (September 2023), paroxysmal A-fib on Eliquis, hypothyroidism and history of melanoma who presents with AMS, cough, lower extremity swelling + weakness. She recently fell in her bathroom on 05/24/2024 and has left-sided periorbital
swelling/bruising. Head/facial bone CT from 05/24/2024 shows no acute intracranial abnormality with evidence of left temporal craniotomy. Also no facial bone fracture. Her cough has been ongoing for about 2-3 weeks now. She saw her PCP recently
who prescribed a week of antibiotics (cefuroxime). Second week was prescribed due to minimal improvement. She is also been feeling more confused and lethargic lately. No fevers or chills at home. Lower extremity swelling has also been worsening
as per the patient's sister, Isela. In the ER she was afebrile to 98.3 �F, tachycardic to 107 bpm, breathing at 18-24 breaths/min, BP 101/76 and saturating 98% on room air. Labs showed leukocytosis to 14.4, 15% bands, sodium 129, serum
bicarbonate level 17, lactate 2.5, ALT 37, proBNP 737, troponin negative at <0.012, procalcitonin elevated at 0.59, and COVID antigen negative. Blood cultures were collected. CXR showed RUL scarring with no acute cardiopulmonary process. CT of
the chest then done showing no acute PE showing concern for recurrent right lung metastatic disease with superimposed infectious/inflammatory bronchiolitis throughout the right lower lobe. Patient given IVF with 2.3 L of NS 0.9%, cefepime and IV
vancomycin. Patient admitted to the IMU under the hospitalist and pulmonary consulted for additional management/recommendations.
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
hoarseness
Impression:
#RLL pneumonia with suspicion for recurrent RUL lung cancer
#Sepsis without shock due to above
#New SAMUEL spiculated pulmonary nodule measuring 15mm)
#Hypokalemia
#Hyperglycemia
#Large hiatal hernia with severe esophageal fluid distention
#Subclinical hypothyroidism
#Chronic RLL pleural effusion
#COPD/centrilobular emphysema with acute exacerbation
#Chronic steroid use with Decadron 2 mg PO BID
#Former tobacco smoker (60-PY Hx; quit 2018)
Plan:
- Continue with broad-spectrum antibiotics � currently on cefepime/vancomycin
- Follow up sputum Cx and blood Cx
- If MRSA swab negative then DC IV vanco
- Keep MAP>65
- Repeat CT chest without contrast in 4-6 weeks to follow pneumonia to resolution and discuss repeat biopsy if lung cancer recurrence is suspected
- If repeat CT chest is stable with no concern for recurrent lung cancer, she does qualify for annual LDCT chest for lung cancer screening
- Maintain SpO2 88-95% with supplemental O2 and wean as tolerated
- Start systemic steroids with prednisone
- DuoNebs with budesonide BID and prn albuterol for breakthrough symptoms
- Incentive spirometer encouraged 10x per hour for at least 4 hrs a day
- Raise LT4 dose to 137mcg
- Continue amiodarone with goal HR<110
- Replete electrolytes with K>4, Mg>2
- Maintain euglycemia with goal BG >100 and <180; start ISS moderate resistance; low threshold to start lantus
- DVT ppx: Eliquis
Pulmonary service will continue to follow along. She will need repeat CT chest in about 4-6 weeks and outpatient follow-up. She already follows with us in the office with Dr. Frias, last visit on 10/24/2023.
Data:
CTA Chest 06/03/2024:
1. No evidence of pulmonary embolism.
2. Interval progression/recurrence of right lung pulmonary neoplasm with new pulmonary metastatic disease. Probable superimposed infectious/inflammatory bronchiolitis throughout the right lower lobe.
Total time spent today was 55 minutes for this encounter. Time includes reviewing laboratory test/imaging results, reviewing pertinent medical records, obtaining and reviewing medical history, performing an appropriate exam, ordering medications,
tests and procedures. Time also includes documentation of this encounter, coordinating patient care and communicating with other healthcare professionals. Total time does not include separately billed tests performed on this date of service.
--- NOTE | 2024-06-04 09:00 | PTCARENOTE ---
Assumed care of pt. VSS. Pt A&Ox2. VSS. 4L NC applied with rattling, nonproductive cough. SpO2 94-96%. Tolerating meal/meds without issue. Purwick in place draining clear/yellow urine. L facial bruise present, scattered scabs BSS SOLUTION ARCHITECT, MASD groin
present. Fungal powder requested from Hospitalist. Sister at bedside. Plan of care discussed
--- NOTE | 2024-06-04 09:06 | PHA.VAN.IN ---
Assessment
- Assessment
Renal Function: Appears similar to baseline
Concomitant Antimicrobials: cefepime
AUC Dosing Plan
- Dosing Variables
Dosing Weight (kg): 74.2
Dosing CrCl (ml/min): 72
Vd coefficient (L/kg): 0.7
- Empiric Dosing
Initial / Loading Dose: 2000 mg x 1 LD 06/03 19:39
Maintenance Regimen: 750 mg q12h - to start this AM
Estimated Peak (mcg*h/mL): 465
Estimated Trough (mcg/ml): 13.3
Estimated Half Life (H): 10.8
- Monitoring
No levels ordered at this time: consider levels when pt reaches steady state
Pharmacokinetics Vancomycin I
- -
Patient Age: 73
Patient Sex: Female
Vancomycin Day #: 1
Indication: Pulmonary/Respiratory
Requesting Provider: Lacie
Pertinent Antimicrobial Allergies:
sulfonamide antibiotcs
Height / Weight:
Height 5 ft 5 in
Actual Weight 74.2 kg
Pertinent Past Medical History: hx lung Ca; prior mets to brain; recent tx w/ OP abx x 2 wks with no improv
- Vital Signs / Lab Results
Temp Pulse Resp BP Pulse Ox
97.5 F 87 16 98/60 95
06/04/24 08:28 06/04/24 08:00 06/04/24 08:00 06/04/24 08:00 06/04/24 08:00
Lab Results - Hematology
06/03/24 06/04/24
17:35 05:29
WBC 14.4 H 9.9
Band Neutrophils 15 H
Lab Results - Chemistry
06/03/24 06/04/24
17:35 05:29
BUN 39 H 27 H
Creatinine 0.8 0.7
Estimated Creat Clear 72
Albumin 3.6
06/03/24 06/03/24
19:05 22:49
Lactic Acid 2.5 H 1.4
[2024-06-04] MEDS: PROTONIX 40 MG PO (09:17)
[2024-06-04] MEDS: ELIQUIS 5 MG PO ×2 (09:17→19:24)
[2024-06-04] MEDS: PACERONE 200 MG PO (09:18)
[2024-06-04] MEDS: KEPPRA 500 MG PO ×2 (09:18→19:23)
[2024-06-04] MEDS: VANCOCIN 150 IV (09:18)
[2024-06-04] MEDS: ProAmatine 2.5 MG PO ×3 (09:50→13:56)
[2024-06-04 10:51] LABS: Osmolality Urine 772 mOsm/kg (300-900)
--- NOTE | 2024-06-04 10:53 | CON.ONC ---
Documented by User: Gonzalo Veras DO, Resident 06/04/24 12:23
Impression
Impression
73-year-old female with history of stage IIIb lung cancer with brain metastasis, previously in remission, now presenting with concern of recurrence of lung cancer.
Plan
Plan
Patient to see Dr. Wheeler outpatient in the clinic for evaluation. PET/CT required for restaging.
Continue all management per primary medical team
Patient History
History of Present Illness
Patient is a 73-year-old female with past medical history of arrhythmia, GERD, seizures and stage IIIb lung cancer, previously diagnosed in 2018, s/p chemoradiation and development of brain metastasis s/p craniotomy in 2021, both in remission,
presenting to [facility] with decline in mental and functional status over the last 2 weeks. She is a known patient of Dr. Wheeler, last seen in December 2023, and underwent carboplatin and Abraxane treatment in [address] Genaro Dimas.
CT of chest on 06/03 shows interval progression/recurrence of right lung pulmonary neoplasm with new pulmonary metastatic disease, with superimposed infectious/inflammatory bronchiolitis throughout the right lower lobe. She states her PT provider
stated she was 'weaker' and was not performing as well physically and mentally- prompting hospital admission. She is experiencing SOB, cough, weakness, LE edema. No other symptoms reported.
Past-Medical/Surgical History
Arrhythmia
Lung cancer
GERD
Seizure disorder
Hypothyroidism
Hypercholesterolemia
Craniotomy
Patient Medication
�Medication �Instructions �Recorded �Confirmed �Last Taken �Type
apixaban 5 mg tablet (Eliquis) 5 mg PO BID Blood Clot 06/19/23 06/03/24 06/03/24 Rx
Prevention/Tx #0 tabs
atorvastatin 10 mg tablet 10 mg PO HS High Cholesterol 08/01/23 06/03/24 06/02/24 History
levothyroxine 112 mcg tablet 112 mcg PO DAILY Thyroid 09/18/23 06/03/24 06/03/24 History
amiodarone 200 mg tablet 200 mg PO DAILY 02/23/24 06/03/24 06/03/24 History
cefuroxime axetil 500 mg tablet 500 mg PO BID 02/23/24 06/03/24 06/03/24 History
furosemide 20 mg tablet 20 mg PO BID 02/23/24 06/03/24 06/03/24 History
dexamethasone 2 mg tablet 2 mg PO BID 06/03/24 06/03/24 06/03/24 History
ferrous sulfate 220 mg (44 mg 220 mg PO Q48H 06/03/24 06/03/24 Unknown History
iron)/5 mL oral solution
levetiracetam 500 mg tablet 500 mg PO BID 06/03/24 06/03/24 06/03/24 History
omeprazole 40 mg capsule,delayed 40 mg PO TID 06/03/24 06/03/24 06/03/24 History
release
potassium chloride 20 mEq/15 mL 10 meq PO BID 06/03/24 06/03/24 06/03/24 History
oral liquid
Active Medications
Generic Name Dose Route Start Last Admin
Trade Name Freq PRN Reason Stop Dose Admin
Acetaminophen 650 mg 06/04/24 01:54
Acetaminophen 325 Mg Tablet PO 07/02/24 01:53
Q4HPRN PRN
if temp > 101 F
Albuterol Sulfate 2.5 mg 06/04/24 01:54
Albuterol Nebs 2.5 Mg/3 Ml Ampul INH
R Q4HPRN PRN
shortness of breath/wheezing
Protocol
Amiodarone HCl 200 mg 06/04/24 08:00 06/04/24 09:18
Amiodarone 200 Mg Tablet PO 07/02/24 07:59 200 mg
DAILY MELODY Administration
Apixaban 5 mg 06/04/24 08:00 06/04/24 09:17
Apixaban (Eliquis) 5 Mg Tablet PO 07/02/24 07:59 5 mg
BID MELODY Administration
Atorvastatin Calcium 10 mg 06/03/24 22:00 06/04/24 03:13
Atorvastatin (Lipitor) 10 Mg Tablet PO 07/01/24 21:59 Not Given
HS MELODY
Cefepime HCl 2,000 mg 06/04/24 02:00 06/04/24 09:18
Cefepime Hcl 2,000 Mg/12.5 Ml Vial IV 2,000 mg
Q8H MELODY Administration
Guaifenesin/Dextromethorphan 5 ml 06/04/24 01:54
Guaifenesin/Dextromethorphan 200 Mg/10 Ml Cup PO 07/02/24 01:53
Q4HPRN PRN
cough
Vancomycin HCl 750 mg in 150 mls @ 150 mls/hr 06/04/24 10:00 06/04/24 09:18
Vancocin IV 150 mls
BID@0600,1800 MELODY Administration
Protocol
Levetiracetam 500 mg 06/04/24 08:00 06/04/24 09:18
Levetiracetam 500 Mg Regular Release Tablet PO 07/02/24 07:59 500 mg
BID MELODY Administration
Levothyroxine Sodium 112 mcg 06/04/24 06:00 06/04/24 06:07
Levothyroxine 112 Mcg Tablet PO 07/02/24 05:59 112 mcg
DAILY @ 0600 MELODY Administration
Miconazole Nitrate 0 applic 06/04/24 10:00
Miconazole Powder Bottle TOPICAL 07/02/24 09:59
BID MELODY
Midodrine 2.5 mg 06/04/24 13:00
Midodrine 2.5 Mg Tablet PO
TID@0800,1300,1800 MELODY
Ondansetron HCl 4 mg 06/04/24 01:54
Ondansetron 4 Mg/2 Ml Vial IV 07/02/24 01:53
Q6HPRN PRN
nausea/vomiting
Pantoprazole Sodium 40 mg 06/04/24 08:00 06/04/24 09:17
Pantoprazole 40 Mg Delayed Release Tablet PO 07/02/24 07:59 40 mg
DAILY MELODY Administration
Sodium Chloride 0 flush 06/03/24 22:00
Sodium Chloride 0.9% (Flush) Syringe IV 07/01/24 21:59
PER PROTOCOL MELODY
Sterile Water 10 ml 06/04/24 02:00 06/04/24 09:19
Sterile Water For Injection 10 Ml Vial IV 07/02/24 01:59 10 ml
Q8H MELODY Administration
Review of Systems
-
History Source: Patient
Constitutional: Reports Fatigue and Weakness
Respiratory: Reports Trouble Breathing
Cardiac: Reports No Symptoms
GI: Reports No Symptoms
: Reports No Symptoms
Musculoskeletal: Reports Muscle Weakness
Neuro: Reports Weakness
Psych: Reports No Symptoms
Physical Exam
-
General: Well Developed, Well Nourished, Comfortable and Conversant
GI: Soft
Musculoskeletal: No Clubbing, No Cyanosis, Edema, Right Lower Extrem and Edema, Left Lower Extrem
Skin: Warm and Dry
Psych: Calm
Labs
Lab Results
WBC 9.9 10^3/uL (4.8-10.8) 06/04/24 05:29
RBC 4.49 10^6/uL (4.20-5.40) 06/04/24 05:29
Hgb 14.3 g/dL (12.0-16.0) 06/04/24 05:29
Hct 41.2 % (37.0-47.0) 06/04/24 05:29
MCV 91.8 fL (81.0-99.0) 06/04/24 05:29
MCH 31.8 pg (27.0-31.0) H 06/04/24 05:29
MCHC 34.7 g/dL (33.0-37.0) 06/04/24 05:29
RDW 15.1 % (11.5-14.5) H 06/04/24 05:29
Plt Count 141 10^3/uL (130-400) D 06/04/24 05:29
MPV 10.5 fL (7.4-10.4) H 06/04/24 05:29
Creatinine 0.7 mg/dL (0.6-1.0) 06/04/24 05:29
Vital Signs
Vital Signs
Temp Pulse Resp BP Pulse Ox
97.5 F 87 16 98/60 95
06/04/24 08:28 06/04/24 08:00 06/04/24 08:00 06/04/24 08:00 06/04/24 08:00

Documented by User: Niels Youssef MD 06/04/24 13:49
Plan
Plan
Patient to see Dr. Wheeler outpatient in the clinic for evaluation.
PET/CT required for restaging as outpt
Continue all management per primary medical team
Oncology Addendum:
Patient seen and evaluated and agree w/ medical grade shoemaker note and plan as outlined.
-h/o stage IIIB NSCLC - tx w/ concurrent chemo/XRT 2018 w/ SHELTER ADVOCATE recurrence 2021 s/p XRT
-SOB/ pneumonia w/ increase in lung nodules - 1.5cm
-cont antibiotics for pneumonia as per primary service
-w/u of lung nodules as outpt - will need PET/CT for re-staging and potential biopsy
-f/u w/ Dr. Wheeler to be adjusted
Will continue to follow with you.
[2024-06-04] MEDS: DESENEX/MITRAZOL/ZEASORB 1 APPLIC TOPICAL ×2 (11:28→19:23)
--- NOTE | 2024-06-04 13:03 | W.PN.HOSP.TC ---
Today's Communication/Plan
-
dc vanc
iv cefepime
Onc recs
midodrine
PT/OT
Assessment / Plan
Assessment / Plan
General: Conversant
HEENT: NormoCephalic, Anicteric, Atraumatic (Left facial ecchymoses), Oxygen
Respiratory: Decreased Breath Sounds
Cardiac: S1/S2 and Regular Rhythm
GI: Soft, Non Tender, Non Distended and Normal Bowel Sounds
Musculoskeletal: No Clubbing, No Cyanosis, Edema, Left Lower Extremity and Edema, Right Lower Extremity
Skin: Warm
Neuro: AO x 3
Hematologic/Lymphatic: No Lymphadenopathy
Psych: Calm
Acute hypoxic respiratory insufficiency likely secondary to patient with likely recurrent metastatic lung ca with super-imposed infection.
- Tried on oral abx as an outpatient for 2 weeks with no improvements. Negative COVID.
- Blood cultures in lab. Urine Legionella negative. Await for sputum sample.
- MRSA screen negative. DC Vanco. Continue with cefepime.
- supportive care with supplemental oxygen and cough suppression
- prn nebs
- incentive spirometry. Negative for pulmonary embolism.
- pulmonary consulted
Primary Lung adenocarcinoma Ca with mets in remission
-History of Lung CA in remission s/p radiation and chemotherapy. w/mets to brain s/p requiring steroids, stereotactic radiosurgery 2021.
- Followed by Dr. Arango. Last CT was free of Ca about 6 months ago. But has been having a subacute to chronic non-productive cough that turned productive 4/5 days ago. No hemoptysis.
- CT chest showing Redemonstration of medial right upper lobe/perihilar scarring and consolidation with volume loss. There is increased subpleural/tree-in-bud nodularity throughout the right lower lobe. New 1.5 cm spiculated left upper lobe nodule.
Stable small loculated right pleural effusion. No pericardial effusions, or enlarged lymph nodes in the thorax.
- oncology consultation
- supportive care for now. Continue with keppra
Paroxysmal atrial fibrillation
- continue amiodarone
- continue eliquis
- Monitor on tele
Hypotension
-start midodrine low dose and adjust prn
Chronic HFpEF
- hold IVF.
- restart lasix 20 mg bid tomorrow if BP stable.
Hyponatremia - euvolemic to hypervolemic.
- fluid restriction for now
- check urine osmolality
- tsh as above
Esophagus stricture likely secondary to radiation status post dilatation
History of large hiatal hernia
-Monitor symptoms. Cont PPI.
Suspected ambulatory dysfunction
-PT/OT
DVT PPX - on eliquis
Code Status - She clearly expresses wish to be full code.
Discussed with patient sister at bedside in detail.'
PT/OT-may require SNF placement
Anticipated Discharge: > 48 hours
Subjective/Interval History
-
Date of Service: June 04, 2024
states of productive cough
falls at home
Objective Data
-
Labs:
Laboratory Results
06/04/24
05:29
WBC 9.9
Hgb 14.3
Hct 41.2
Plt Count 141 D
Sodium 140 D
Potassium 3.4 L
Chloride 102
Carbon Dioxide 30
BUN 27 H
Creatinine 0.7
Glucose 406 H
Calcium 8.5
Vital Signs:
Vital Signs
Temp Pulse Resp BP Pulse Ox
97.9 F 91 17 91/61 94
06/04/24 11:20 06/04/24 12:52 06/04/24 11:45 06/04/24 12:52 06/04/24 11:50
I&O
06/03/24 06/04/24 06/05/24
06:59 06:59 06:59
Intake Total 150 / 150
Output Total 1600 / 1600 250 / 250
Balance -1600 / -1600 -100 / -100
Data Reviewed
-
Total Time Spent with Patient (in minutes): 58
--- NOTE | 2024-06-04 13:27 | CM ---
Addendum entered by Troy Dumont 06/04/24 14:50:
PT and OT evaluations noted - SNF level of care recommended.
CM discussed it with the pt and her sister and they expressed their agreement with going to a SNF. Pt stated she was at [facility] in the past and she is requested [facility].
A referral to [facility] SNF made. Awaiting for determination.
D/C plan: [facility] when medically stable.
CM will follow to assist pt with discharge to [facility].
Original Note:
CM following re: discharge planning.
Reviewed pt's chart, met with pt and pt's sister at bedside.
pt is a 73 year old female, admitted with primary dx of Hypoxia
Met with patient who resides with her sister and brother in law in a 2 story house, with first floor bedroom/bath. 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 No SNF or VN history. Pt is known to
[facility]. Pt expressed her desire to return back home at discharge.
PT and OT to evaluate the pt to determine a level of care at bedside.
PCP - Saul Long
Pharmacy - [facility]
D/C plan: Home with [facility] and family support. Sister to transport at discharge.
CM will follow with discharge plan updates s hospitalization progresses
--- NOTE | 2024-06-04 13:30 | PTCARENOTE ---
Assumed care of patient. Full assessment as documented. Pt in chair, assisted OOB x1 w/ RW to BSC for BM. Pt resting comfortably, offers no complaints. Weaned to 2L NC sating 94-95%. Will continue to monitor.
--- NOTE | 2024-06-04 17:00 | PTCARENOTE ---
No change in assessment. VSS. Addressed AM labs w/ , AccuChecks added and K to be repleted. Plan to transfer to IMU when bed available.
[2024-06-04] MEDS: ProAmatine 5 MG PO (17:26)
[2024-06-04] MEDS: KLOR-CON 40 MEQ PO (17:52)
[2024-06-04 17:58] LABS: Glucose - Point of Care > 600 mg/dl (70-99)
--- NOTE | 2024-06-04 18:29 | PTCARENOTE ---
Received patient in chair from ICU. Blood sugar elevated upon arrival. Stat serum glucose completed. Patient is asymptomatic at this time. Lab result pending.
[2024-06-04 18:49] LABS: Glucose 624 mg/dl (70-99)
[2024-06-04] MEDS: DELTASONE 40 MG PO (18:56)
[2024-06-04] MEDS: NOVOLIN N vial 0.12 UNITS SC (19:22)
[2024-06-04] MEDS: NOVOLOG FLEXPEN 10 UNITS SC (19:22)
[2024-06-04] MEDS: NOVOLOG FLEXPEN 4 UNITS SC (19:22)
[2024-06-04] MEDS: NOVOLOG FLEXPEN-MODERATE RESISTANCE SC (19:23)
[2024-06-04] MEDS: LIPITOR 10 MG PO (19:24)
--- NOTE | 2024-06-04 19:34 | PTCARENOTE ---
Pt received at beginning of shift resting in chair. AAOx3. Drowsy. Was transfer from ICU just before change of shift. Since pt's am glucose was >400 accucheck obtained by mk BERGER resulted >600. Stat glucose obtained resulted 624. Mk BERGER
obtained some Insulin orders from Dr Anglin which including 12 units NPH and AC Novolog Insulin orders but no sliding scale coverage order. Phoebe HILL TT'd and made aware of above. Order entered for 10 units Novolog now. Pt received all
insulin as ordered as well as stat Prednisone. Pt currently resting comfortably. Call [place] remains within reach. Will continue to monitor.
[2024-06-04] MEDS: DUONEB 3 ML INH (19:46)
[2024-06-04] MEDS: PULMICORT 0.5 MG INH (19:46)
[2024-06-04 21:30] LABS: Glucose - Point of Care 503 mg/dl (70-99)
[2024-06-04 22:12] LABS: Glucose 553 mg/dl (70-99)
[2024-06-04] MEDS: NOVOLOG FLEXPEN 12 UNITS SC (22:22)
[2024-06-05] VITALS (15 sets, daily range): BP systolic 91–117; BP diastolic 58–92; PULSE 91–94; O2SAT 98–99
[2024-06-05 00:34] LABS: Glucose - Point of Care 442 mg/dl (70-99)
[2024-06-05 00:54] LABS: Glucose 399 mg/dl (70-99)
[2024-06-05] MEDS: NOVOLOG FLEXPEN 9 UNITS SC (01:15)
[2024-06-05] MEDS: MAXIPIME 2000 MG IV ×3 (01:15→17:32)
[2024-06-05] MEDS: STERILE WATER FOR INJECTION 10 ML IV ×3 (01:16→17:32)
[2024-06-05] MEDS: FLUSH (NSS) 2 FLUSH IV (01:16)
[2024-06-05 03:29] LABS: Glucose - Point of Care 280 mg/dl (70-99)
[2024-06-05 04:39] LABS: Hematocrit 32.6 % (37.0-47.0); Hemoglobin 11.5 g/dL (12.0-16.0); Mean Corp Hgb Conc. 35.3 g/dL (33.0-37.0); Mean Corpuscular Hgb 31.2 pg (27.0-31.0); Mean Corpuscular Volume 88.3 fL (81.0-99.0); Mean Platelet Volume 10.8 fL (7.4-10.4); Platelet Count 159 10^3/uL (130-400); Red Blood Cell Count 3.69 10^6/uL (4.20-5.40); Red Cell Dist. Width 15.1 % (11.5-14.5); White Blood Cell Count 8.7 10^3/uL (4.8-10.8)
[2024-06-05 05:10] LABS: ALT (SGPT) 27 U/L (0-35); AST (SGOT) 24 U/L (14-36); Albumin 2.8 g/dl (3.5-5.0); Alkaline Phosphatase 68 U/L (38-126); Blood Urea Nitrogen 22 mg/dl (7-17); Calcium 8.7 mg/dl (8.4-10.2); Carbon Dioxide 25 mmol/L (22-30); Chloride 105 mmol/L (98-107); Direct Bilirubin 0.4 mg/dl (0.0-0.4); Estimated Creatinine Clearance 72 ml/min; Glucose 265 mg/dl (70-99); Magnesium 1.9 mg/dl (1.6-2.3); Phosphorus 2.3 mg/dl (2.5-4.5); Potassium 4.5 mmol/L (3.5-5.1); Sodium 137 mmol/L (135-145); Total Bilirubin 0.7 mg/dl (0.2-1.3); Total Protein 5.3 g/dl (6.3-8.2); eGFR > 60.00
[2024-06-05 05:17] LABS: % Basophils 0.7 % (0-2); % Eosinophils 0.8 % (0-6); % Immature Granulocytes 5.9 % (0-0.5); % Lymphocytes 2.3 % (20.5-51.1); % Monocytes 1.8 % (1.7-9.3); % Neutrophils 88.5 % (42.2-75.2); Absolute Basophils 0.1 10^3/uL (0-0.2); Absolute Eosinophils 0.1 10^3/uL (0-0.7); Absolute Immature Granulocytes 0.5 10^3/uL (0-0.05); Absolute Lymphocytes 0.2 10^3/uL (1.2-3.4); Absolute Monocytes 0.2 10^3/uL (0.1-0.6); Absolute Neutrophils 7.7 10^3/uL (1.4-6.5); Nucleated Red Blood Cells % 0.2 %
[2024-06-05 07:21] LABS: Glucose - Point of Care 271 mg/dl (70-99)
[2024-06-05] MEDS: PULMICORT 0.5 MG INH ×2 (07:31→20:07)
[2024-06-05] MEDS: DUONEB 3 ML INH ×2 (07:31→20:07)
[2024-06-05] MEDS: LANTUS 0.15 UNITS SC (08:40)
[2024-06-05] MEDS: NOVOLOG FLEXPEN 4 UNITS SC (08:41)
[2024-06-05] MEDS: NOVOLOG FLEXPEN-MODERATE RESISTANCE 5 UNITS SC (08:41)
[2024-06-05] MEDS: ELIQUIS 5 MG PO ×2 (08:42→21:09)
[2024-06-05] MEDS: PROTONIX 40 MG PO (08:42)
[2024-06-05] MEDS: SYNTHROID 137 MCG PO (08:42)
[2024-06-05] MEDS: ProAmatine 5 MG PO (08:42)
[2024-06-05] MEDS: DELTASONE 40 MG PO (08:43)
[2024-06-05] MEDS: PACERONE 200 MG PO (08:44)
[2024-06-05] MEDS: KEPPRA 500 MG PO ×2 (08:44→21:09)
[2024-06-05] MEDS: DESENEX/MITRAZOL/ZEASORB 1 APPLIC TOPICAL ×2 (08:45→21:09)
--- NOTE | 2024-06-05 09:46 | W.PN.PUL3 ---
Today's Communication / Plan
-
Continue with basal/bolus insulin
Antibiotics
Eliquis
Levothyroxine
DuoNebs + budesonide
Outpatient CT chest to follow-up pneumonia resolution; may need lung biopsy depending on repeat CT chest findings
Pulmonary services to continue to follow along
Assessment
-
Assessment: 73-year-old female with a past medical history of COPD, right-sided NSCLC (adenocarcinoma) s/p chemo (last chemotherapy given in 2018) + XRT with mets to brain s/p gamma knife radiation, history pneumonia, esophageal stricture s/p
esophageal dilation (September 2023), paroxysmal A-fib on Eliquis, hypothyroidism and history of melanoma who presents with AMS, cough, lower extremity swelling + weakness. She recently fell in her bathroom on 05/24/2024 and has left-sided periorbital
swelling/bruising. Head/facial bone CT from 05/24/2024 shows no acute intracranial abnormality with evidence of left temporal craniotomy. Also no facial bone fracture. Her cough has been ongoing for about 2-3 weeks now. She saw her PCP recently
who prescribed a week of antibiotics (cefuroxime). Second week was prescribed due to minimal improvement. She is also been feeling more confused and lethargic lately. No fevers or chills at home. Lower extremity swelling has also been worsening
as per the patient's sister, Isela. In the ER she was afebrile to 98.3 �F, tachycardic to 107 bpm, breathing at 18-24 breaths/min, BP 101/76 and saturating 98% on room air. Labs showed leukocytosis to 14.4, 15% bands, sodium 129, serum
bicarbonate level 17, lactate 2.5, ALT 37, proBNP 737, troponin negative at <0.012, procalcitonin elevated at 0.59, and COVID antigen negative. Blood cultures were collected. CXR showed RUL scarring with no acute cardiopulmonary process. CT of
the chest then done showing no acute PE showing concern for recurrent right lung metastatic disease with superimposed infectious/inflammatory bronchiolitis throughout the right lower lobe. Patient given IVF with 2.3 L of NS 0.9%, cefepime and IV
vancomycin. Patient admitted to the IMU under the hospitalist and pulmonary consulted for additional management/recommendations.
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
hoarseness
Impression:
#RLL pneumonia with suspicion for recurrent RUL lung cancer
#Sepsis without shock due to above
#New SAMUEL spiculated pulmonary nodule measuring 15mm)
#Hypokalemia - resolved
#Hyperglycemia
#Large hiatal hernia with severe esophageal fluid distention
#Subclinical hypothyroidism
#Chronic RLL pleural effusion
#COPD/centrilobular emphysema with acute exacerbation
#Chronic steroid use with Decadron 2 mg PO BID
#Former tobacco smoker (60-PY Hx; quit 2018)
Plan:
- Continue with broad-spectrum antibiotics � currently on cefepime
- IV vanco DC'd given negative MRSA swab
- Check sputum Cx; follow up blood Cx (NGTD)
- Keep MAP>65
- Repeat CT chest without contrast in 4-6 weeks to follow pneumonia to resolution and discuss repeat biopsy if lung cancer recurrence is suspected
- If repeat CT chest is stable with no concern for recurrent lung cancer, she does qualify for annual LDCT chest for lung cancer screening
- Maintain SpO2 88-95% with supplemental O2 and wean as tolerated
- Continue systemic steroids with prednisone
- DuoNebs with budesonide BID and prn albuterol for breakthrough symptoms
- Incentive spirometer encouraged 10x per hour for at least 4 hrs a day
- Raised LT4 dose to 137mcg
- Continue amiodarone with goal HR<110
- Replete electrolytes with K>4, Mg>2
- Maintain euglycemia with goal BG >100 and <180; continue ISS moderate resistance with aspart 10 units AC; adjust lantus as needed to keep BG at goal >100 and <180
- DVT ppx: Eliquis
Pulmonary service will continue to follow along. She will need repeat CT chest in about 4-6 weeks and outpatient follow-up. She already follows with us in the office with Dr. Frias, last visit on 10/24/2023.
Data:
CTA Chest 06/03/2024:
1. No evidence of pulmonary embolism.
2. Interval progression/recurrence of right lung pulmonary neoplasm with new pulmonary metastatic disease. Probable superimposed infectious/inflammatory bronchiolitis throughout the right lower lobe.
Total time spent today was 35 minutes for this encounter. Time includes reviewing laboratory test/imaging results, reviewing pertinent medical records, obtaining and reviewing medical history, performing an appropriate exam, ordering medications,
tests and procedures. Time also includes documentation of this encounter, coordinating patient care and communicating with other healthcare professionals. Total time does not include separately billed tests performed on this date of service.
Subjective Data
-
Date of Service:
Date of Service: June 05, 2024
Chief Complaint: Pulmonary Follow Up
Subjective:
Patient seen and evaluated today at bedside. She denies shortness of breath and denies cough. Current heart rate 93, BP 91/62 and saturating 98% on 3 L/min nasal cannula. No acute overnight events reported. She denies CHIRINOS, abdominal pain, nausea,
vomiting, fevers or chills.
Review of Systems
General: Other (Negative unless mentioned above)
Objective Data
Data Reviewed
Vital Signs / I&O / Oxygen:
Vital Signs
Temp Pulse Resp BP Pulse Ox
97.9 F 75 19 103/64 100
06/05/24 07:00 06/05/24 07:31 06/05/24 07:31 06/05/24 06:00 06/05/24 07:31
Intake and Output
06/04/24 06/05/24 06/06/24
06:59 06:59 06:59
Intake Total 830 / 830
Output Total 1600 / 1600 750 / 750
Balance -1600 / -1600 80 / 80
SaO2 100
Nasal Cannula flow liters per 4
minute
Physical Exam
General: Respiratory Distress (negative), Comfortable, Chills (negative) and Sweats (negative)
HEENT: Normocephalic and Anicteric
Cardiovascular: S1-S2 and Peripheral Edema (+2 lower extremity edema bilaterally (L >R))
Respiratory: Wheeze (negative), Crackles (Bilateral), Rhonchi (negative) and Non-Labored Respirations
GI: Soft, Non Distended, Non Tender and Normal Bowel Sounds
Neurology: AO x 3 and Tremors (negative)
Skin: Warm, Dry and Jaundice (negative)
Labs/Micro/Reports
Lab Data
06/05/24 04:14
06/05/24 04:14
Microbiology
06/03/24 19:05 Blood/Venous Blood Culture - Preliminary
No Growth in 24 hours- Final report to follow
06/03/24 19:05 Blood/Venous Blood Culture - Preliminary
No Growth in 24 hours- Final report to follow
06/04/24 09:49 Nose Nasal Screen MRSA (PCR) - Final
MRSA not detected - performed by PCR methodology.
06/04/24 09:49 Urine Legionella Urinary Antigen - Final
Negative for Legionella pneumophila Serogroup 1 antigen.
A negative result does not rule out the possiblity of
Legionella infection due to other serogroups or species of
Legionella. Clinical correlation is recommended.
[2024-06-05 09:57] LABS: Glycohemoglobin (HgbA1c) 12.2 % (4.0-5.6)
[2024-06-05 11:54] LABS: Glucose - Point of Care 464 mg/dl (70-99)
--- NOTE | 2024-06-05 12:28 | W.PN.HOSP.TC ---
Today's Communication/Plan
-
Adjust insulin as needed
IV antibiotic
Steroid taper per pulmonary
Cont with bronchodilator
SNF on discharge
Assessment / Plan
Assessment / Plan
General: Conversant
HEENT: NormoCephalic, Anicteric, Atraumatic (Left facial ecchymoses), Oxygen
Respiratory: Decreased Breath Sounds
Cardiac: S1/S2 and Regular Rhythm
GI: Soft, Non Tender, Non Distended and Normal Bowel Sounds
Musculoskeletal: No Clubbing, No Cyanosis, Edema, Left Lower Extremity and Edema, Right Lower Extremity
Skin: Warm
Neuro: AO x 3
Hematologic/Lymphatic: No Lymphadenopathy
Psych: Calm
Acute hypoxic respiratory insufficiency likely secondary to patient with likely recurrent metastatic lung ca with super-imposed infection and AECOPD
Sepsis likely 2/2 pna-poa
Bandemia resolved
- Tried on oral abx as an outpatient for 2 weeks with no improvements. Negative COVID.
- Blood cultures in lab negative so far . Urine Legionella negative. Await for sputum sample.
- MRSA screen negative. DC Vanco. Continue with cefepime.
- supportive care with supplemental oxygen and cough suppression
- incentive spirometry. Negative for pulmonary embolism.
- pulmonary consulted
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
-History of Lung CA in remission s/p radiation and chemotherapy. w/mets to brain s/p requiring steroids, stereotactic radiosurgery 2021.
- Followed by Dr. Arango. Last CT was free of Ca about 6 months ago. But has been having a subacute to chronic non-productive cough that turned productive 4/5 days ago. No hemoptysis.
- CT chest showing Redemonstration of medial right upper lobe/perihilar scarring and consolidation with volume loss. There is increased subpleural/tree-in-bud nodularity throughout the right lower lobe. New 1.5 cm spiculated left upper lobe nodule.
Stable small loculated right pleural effusion. No pericardial effusions, or enlarged lymph nodes in the thorax.
- oncology consultation -Recommend OP f/u with Dr. Wheeler for PET/CT
- supportive care for now. Continue with keppra
Acute COPD exacerbation
Chronic steroids usage
-Started on prednisone taper regimen per pulm
-cont with broncohdilators
DM uncontrolled
-POC significantly elevated and worsened due to steroids
-started basal/bolus reigmen. Lantus 22u qhs and novolog 6u AC and ISS.
-adjust insulin as needed
-A1C at 12.2
Hypotension
-start midodrine low dose and adjust prn
Chronic HFpEF
-Check probnp.
-may not tolerate lasix bid dosing.
Pseudohyponatremia secondary to hyperglycemia
-resolved.
Paroxysmal atrial fibrillation
- continue amiodarone
- continue eliquis
- Monitor on tele
Esophagus stricture likely secondary to radiation status post dilatation
History of large hiatal hernia
-Monitor symptoms. Cont PPI.
Subclinical hypothyroidism
-Synthroid dose increased 137mcg as TSH 17.50
-repeat TFT 4-6 weeks
Suspected ambulatory dysfunction
-PT/OT
DVT PPX - on eliquis
Code Status - She clearly expresses wish to be full code.
Discussed with patient sister at bedside in detail on 06/04.
PT/OT-plan for SNF on discharge
Anticipated Discharge: > 48 hours
Subjective/Interval History
-
Date of Service: June 05, 2024
OOB and worked with pt
tolerating diet
remains with cough
Objective Data
-
Labs:
Laboratory Results
06/05/24 06/05/24 06/05/24
00:30 04:14 12:04
WBC 8.7
Hgb 11.5 L
Hct 32.6 L
Plt Count 159
Sodium 137
Potassium 4.5 D
Chloride 105
Carbon Dioxide 25
BUN 22 H
Creatinine 0.7
Glucose 399 H 265 H Pending
Calcium 8.7
Total Bilirubin 0.7
AST 24
ALT 27
Alkaline Phosphatase 68
Vital Signs:
Vital Signs
Temp Pulse Resp BP Pulse Ox
98.0 F 75 19 103/64 100
06/05/24 11:05 06/05/24 07:31 06/05/24 07:31 06/05/24 06:00 06/05/24 09:53
I&O
06/04/24 06/05/24 06/06/24
06:59 06:59 06:59
Intake Total 830 / 830
Output Total 1600 / 1600 750 / 750
Balance -1600 / -1600 80 / 80
Data Reviewed
-
Total Time Spent with Patient (in minutes): 58
[2024-06-05 12:34] LABS: Glucose 426 mg/dl (70-99)
[2024-06-05] MEDS: NOVOLIN N vial 0.1 UNITS SC (12:36)
[2024-06-05] MEDS: NOVOLOG FLEXPEN-MODERATE RESISTANCE 11 UNITS SC (12:37)
[2024-06-05] MEDS: NOVOLOG FLEXPEN 6 UNITS SC (12:37)
[2024-06-05] MEDS: ProAmatine PO ×2 (14:34→17:32)
[2024-06-05 15:50] LABS: Glucose - Point of Care 331 mg/dl (70-99)
[2024-06-05] MEDS: NOVOLOG FLEXPEN 10 UNITS SC (16:23)
[2024-06-05] MEDS: NOVOLOG FLEXPEN-MODERATE RESISTANCE 7 UNITS SC (16:23)
[2024-06-05] MEDS: LIPITOR 10 MG PO (21:09)
[2024-06-05] MEDS: LANTUS 0.25 UNITS SC (21:14)
[2024-06-05 21:25] LABS: Glucose - Point of Care 240 mg/dl (70-99)
[2024-06-06] VITALS (13 sets, daily range): BP systolic 86–123; BP diastolic 54–93
[2024-06-06] MEDS: STERILE WATER FOR INJECTION 10 ML IV ×3 (03:47→17:11)
[2024-06-06] MEDS: SYNTHROID 137 MCG PO (03:48)
[2024-06-06] MEDS: MAXIPIME 2000 MG IV ×3 (03:48→17:10)
[2024-06-06 04:40] LABS: Hematocrit 31.2 % (37.0-47.0); Hemoglobin 10.9 g/dL (12.0-16.0); Mean Corp Hgb Conc. 34.9 g/dL (33.0-37.0); Mean Corpuscular Hgb 31.9 pg (27.0-31.0); Mean Corpuscular Volume 91.2 fL (81.0-99.0); Mean Platelet Volume 10.2 fL (7.4-10.4); Platelet Count 138 10^3/uL (130-400); Red Blood Cell Count 3.42 10^6/uL (4.20-5.40); White Blood Cell Count 7.4 10^3/uL (4.8-10.8)
[2024-06-06 04:50] LABS: Blood Urea Nitrogen 26 mg/dl (7-17); Calcium 8.5 mg/dl (8.4-10.2); Carbon Dioxide 23 mmol/L (22-30); Chloride 105 mmol/L (98-107); Estimated Creatinine Clearance 72 ml/min; Glucose 210 mg/dl (70-99); Sodium 135 mmol/L (135-145); eGFR > 60.00
[2024-06-06 04:59] LABS: NT-proBNP 150 pg/ml
[2024-06-06 05:10] LABS: % Basophils 0.7 % (0-2); % Eosinophils 0.1 % (0-6); % Immature Granulocytes 8.5 % (0-0.5); % Lymphocytes 4.3 % (20.5-51.1); % Monocytes 2.7 % (1.7-9.3); % Neutrophils 83.7 % (42.2-75.2); Absolute Basophils 0.1 10^3/uL (0-0.2); Absolute Immature Granulocytes 0.6 10^3/uL (0-0.05); Absolute Lymphocytes 0.3 10^3/uL (1.2-3.4); Absolute Monocytes 0.2 10^3/uL (0.1-0.6); Absolute Neutrophils 6.2 10^3/uL (1.4-6.5); Nucleated Red Blood Cells % 0 %
--- NOTE | 2024-06-06 05:10 | PTCARENOTE ---
Pt spent nigh in recliner with air cushion and pillows for comfort. Pt able to tilt and shift self for comfort. Pt appeared to rest well, respiration even unlabored. Able to decrease Pt oxygen to 2L NC, SPO2 98%. Vitals stable at this time. Call
[place] within reach. Chair alarm on. Assessment care and vitals as charted.
[2024-06-06] MEDS: PULMICORT 0.5 MG INH ×2 (07:21→19:43)
[2024-06-06] MEDS: DUONEB 3 ML INH ×2 (07:21→19:43)
[2024-06-06 07:25] LABS: Glucose - Point of Care 214 mg/dl (70-99)
[2024-06-06] MEDS: LANTUS 0.3 UNITS SC (08:34)
[2024-06-06] MEDS: PACERONE 200 MG PO (08:35)
[2024-06-06] MEDS: PROTONIX 40 MG PO (08:35)
[2024-06-06] MEDS: ELIQUIS 5 MG PO ×2 (08:35→20:25)
[2024-06-06] MEDS: ProAmatine 5 MG PO (08:35)
[2024-06-06] MEDS: DELTASONE 40 MG PO (08:35)
[2024-06-06] MEDS: KEPPRA 500 MG PO ×2 (08:35→20:25)
[2024-06-06] MEDS: NOVOLOG FLEXPEN-MODERATE RESISTANCE 3 UNITS SC (08:36)
[2024-06-06] MEDS: NOVOLOG FLEXPEN 10 UNITS SC ×3 (08:37→17:09)
[2024-06-06] MEDS: DESENEX/MITRAZOL/ZEASORB 1 APPLIC TOPICAL ×2 (08:38→20:14)
--- NOTE | 2024-06-06 09:20 | W.PN.PUL3 ---
Today's Communication / Plan
-
Continue with basal/bolus insulin
Antibiotics
Eliquis
Levothyroxine
DuoNebs + budesonide
Outpatient CT chest to follow-up pneumonia resolution; may need lung biopsy depending on repeat CT chest findings
Pulmonary services to continue to briefly follow along
Assessment
-
Assessment: 73-year-old female with a past medical history of COPD, right-sided NSCLC (adenocarcinoma) s/p chemo (last chemotherapy given in 2018) + XRT with mets to brain s/p gamma knife radiation, history pneumonia, esophageal stricture s/p
esophageal dilation (September 2023), paroxysmal A-fib on Eliquis, hypothyroidism and history of melanoma who presents with AMS, cough, lower extremity swelling + weakness. She recently fell in her bathroom on 05/24/2024 and has left-sided periorbital
swelling/bruising. Head/facial bone CT from 05/24/2024 shows no acute intracranial abnormality with evidence of left temporal craniotomy. Also no facial bone fracture. Her cough has been ongoing for about 2-3 weeks now. She saw her PCP recently
who prescribed a week of antibiotics (cefuroxime). Second week was prescribed due to minimal improvement. She is also been feeling more confused and lethargic lately. No fevers or chills at home. Lower extremity swelling has also been worsening
as per the patient's sister, Isela. In the ER she was afebrile to 98.3 �F, tachycardic to 107 bpm, breathing at 18-24 breaths/min, BP 101/76 and saturating 98% on room air. Labs showed leukocytosis to 14.4, 15% bands, sodium 129, serum
bicarbonate level 17, lactate 2.5, ALT 37, proBNP 737, troponin negative at <0.012, procalcitonin elevated at 0.59, and COVID antigen negative. Blood cultures were collected. CXR showed RUL scarring with no acute cardiopulmonary process. CT of
the chest then done showing no acute PE showing concern for recurrent right lung metastatic disease with superimposed infectious/inflammatory bronchiolitis throughout the right lower lobe. Patient given IVF with 2.3 L of NS 0.9%, cefepime and IV
vancomycin. Patient admitted to the IMU under the hospitalist and pulmonary consulted for additional management/recommendations.
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
hoarseness
Impression:
#RLL pneumonia with suspicion for recurrent RUL lung cancer
#Sepsis without shock due to above
#New SAMUEL spiculated pulmonary nodule (measuring 15mm)
#Hypokalemia - resolved
#Hyperglycemia
#Large hiatal hernia with severe esophageal fluid distention
#Subclinical hypothyroidism
#Chronic RLL pleural effusion
#COPD/centrilobular emphysema with acute exacerbation
#Chronic steroid use with Decadron 2 mg PO BID
#Former tobacco smoker (60-PY Hx; quit 2018)
Plan:
- Continue with broad-spectrum antibiotics � currently on cefepime
- IV vanco DC'd given negative MRSA swab
- Check sputum Cx; follow up blood Cx (NGTD)
- Keep MAP>65
- Repeat CT chest without contrast in 4-6 weeks to follow pneumonia to resolution and discuss repeat biopsy if lung cancer recurrence is suspected
- If repeat CT chest is stable with no concern for recurrent lung cancer, she does qualify for annual LDCT chest for lung cancer screening
- Maintain SpO2 88-95% with supplemental O2 and wean as tolerated
- Continue systemic steroids with prednisone --> wean by 10mg every 4th day until back at her home dose of decadron 2mg BID
- DuoNebs with budesonide BID and prn albuterol for breakthrough symptoms
- Incentive spirometer encouraged 10x per hour for at least 4 hrs a day
- Check ambulatory pulse oximetry prior to discharge
- Raised LT4 dose to 137mcg
- Continue amiodarone with goal HR<110
- Replete electrolytes with K>4, Mg>2
- Maintain euglycemia with goal BG >100 and <180; continue ISS moderate resistance with aspart 10 units AC; adjust lantus as needed to keep BG at goal >100 and <180
- DVT ppx: Eliquis
Pulmonary service will continue to follow along. She will need repeat CT chest in about 4-6 weeks and outpatient follow-up. She already follows with us in the office with Dr. Frias, last visit on 10/24/2023.
Data:
CTA Chest 06/03/2024:
1. No evidence of pulmonary embolism.
2. Interval progression/recurrence of right lung pulmonary neoplasm with new pulmonary metastatic disease. Probable superimposed infectious/inflammatory bronchiolitis throughout the right lower lobe.
Total time spent today was 35 minutes for this encounter. Time includes reviewing laboratory test/imaging results, reviewing pertinent medical records, obtaining and reviewing medical history, performing an appropriate exam, ordering medications,
tests and procedures. Time also includes documentation of this encounter, coordinating patient care and communicating with other healthcare professionals. Total time does not include separately billed tests performed on this date of service.
Subjective Data
-
Date of Service:
Date of Service: June 06, 2024
Chief Complaint: Pulmonary Follow Up
Subjective:
Patient seen and evaluated today at bedside. Patient sister, Isela, at bedside. Patient says she feels well. She was weaned down to room air and is saturating 96% at rest. Heart rate 97 and BP 91/68. Patient feels much better. Denying SOB
at rest, denying cough, CHIRINOS, abdominal pain, fevers or chills. She still feels generalized weakness when trying to exert herself.
Review of Systems
General: Other (Negative unless mentioned above)
Objective Data
Data Reviewed
Vital Signs / I&O / Oxygen:
Vital Signs
Temp Pulse Resp BP Pulse Ox
98 F 85 13 115/74 98
06/06/24 07:31 06/06/24 07:24 06/06/24 07:24 06/06/24 06:00 06/06/24 07:24
Intake and Output
06/05/24 06/06/24 06/07/24
06:59 06:59 06:59
Intake Total 830 / 830 360 / 360
Output Total 750 / 750 900 / 900
Balance 80 / 80 -540 / -540
SaO2 98
Nasal Cannula flow liters per 2
minute
Physical Exam
General: Respiratory Distress (negative), Comfortable, Chills (negative) and Sweats (negative)
HEENT: Normocephalic and Anicteric
Cardiovascular: S1-S2 and Peripheral Edema (+2 lower extremity edema bilaterally (L >R))
Respiratory: Wheeze (negative), Crackles (Bibasilar (L >R)), Rhonchi (negative) and Non-Labored Respirations
GI: Soft, Non Distended, Non Tender and Normal Bowel Sounds
Neurology: AO x 3 and Tremors (negative)
Skin: Warm, Dry and Jaundice (negative)
Labs/Micro/Reports
Lab Data
06/06/24 04:11
06/06/24 04:11
Microbiology
06/03/24 19:05 Blood/Venous Blood Culture - Preliminary
No Growth in 48 hours- Final report to follow
06/03/24 19:05 Blood/Venous Blood Culture - Preliminary
No Growth in 48 hours- Final report to follow
06/04/24 09:49 Nose Nasal Screen MRSA (PCR) - Final
MRSA not detected - performed by PCR methodology.
06/04/24 09:49 Urine Legionella Urinary Antigen - Final
Negative for Legionella pneumophila Serogroup 1 antigen.
A negative result does not rule out the possiblity of
Legionella infection due to other serogroups or species of
Legionella. Clinical correlation is recommended.
--- NOTE | 2024-06-06 10:32 | W.PN.HOSP.TC ---
Today's Communication/Plan
-
lasix
steroids
monitor poc
snf on dc
Assessment / Plan
Assessment / Plan
General: Conversant
HEENT: NormoCephalic, Anicteric, Atraumatic (Left facial ecchymoses), Oxygen
Respiratory: Decreased Breath Sounds
Cardiac: S1/S2 and Regular Rhythm
GI: Soft, Non Tender, Non Distended and Normal Bowel Sounds
Musculoskeletal: No Clubbing, No Cyanosis, Edema, Left Lower Extremity and Edema, Right Lower Extremity
Skin: Warm
Neuro: AO x 3
Hematologic/Lymphatic: No Lymphadenopathy
Psych: Calm
Acute hypoxic respiratory insufficiency likely secondary to patient with likely recurrent metastatic lung ca with super-imposed infection and AECOPD
Sepsis likely 2/2 pna-poa
Bandemia resolved
- Tried on oral abx as an outpatient for 2 weeks with no improvements. Negative COVID.
- Blood cultures in lab negative so far . Urine Legionella negative. Await for sputum sample.
- MRSA screen negative. DC Vanco. Continue with cefepime.
- supportive care with supplemental oxygen and cough suppression
- incentive spirometry. Negative for pulmonary embolism.
- pulmonary consulted
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
-History of Lung CA in remission s/p radiation and chemotherapy. w/mets to brain s/p requiring steroids, stereotactic radiosurgery 2021.
- Followed by Dr. Arango. Last CT was free of Ca about 6 months ago. But has been having a subacute to chronic non-productive cough that turned productive 4/5 days ago. No hemoptysis.
- CT chest showing Redemonstration of medial right upper lobe/perihilar scarring and consolidation with volume loss. There is increased subpleural/tree-in-bud nodularity throughout the right lower lobe. New 1.5 cm spiculated left upper lobe nodule.
Stable small loculated right pleural effusion. No pericardial effusions, or enlarged lymph nodes in the thorax.
- oncology consultation -Recommend OP f/u with Dr. Wheeler for PET/CT
- supportive care for now. Continue with keppra
Acute COPD exacerbation
Chronic steroids usage
-Started on prednisone taper regimen per pulm
-cont with broncohdilators
DM uncontrolled
-POC significantly elevated and worsened due to steroids
-started basal/bolus reigmen. Lantus 30 units daily 25 units nightly. Continue with bolus regimen of 10 units insulin sliding scale
-adjust insulin as needed
-A1C at 12.2
Hypotension
-start midodrine low dose and adjust prn
Chronic HFpEF
-Cont lasix 20mg BID home dose
Pseudohyponatremia secondary to hyperglycemia
-resolved.
Paroxysmal atrial fibrillation
- continue amiodarone
- continue eliquis
- Monitor on tele
Esophagus stricture likely secondary to radiation status post dilatation
History of large hiatal hernia
-Monitor symptoms. Cont PPI.
Subclinical hypothyroidism
-Synthroid dose increased 137mcg as TSH 17.50
-repeat TFT 4-6 weeks
Suspected ambulatory dysfunction
-PT/OT
DVT PPX - on eliquis
Code Status -Full code
PT/OT-plan for SNF on discharge
Updated sister over the phone in details.
Anticipated Discharge: > 48 hours
Subjective/Interval History
-
Date of Service: June 06, 2024
feeling better
tolerating diet
Objective Data
-
Labs:
Laboratory Results
06/06/24
04:11
WBC 7.4
Hgb 10.9 L
Hct 31.2 L
Plt Count 138
Sodium 135
Potassium 4.0
Chloride 105
Carbon Dioxide 23
BUN 26 H
Creatinine 0.7
Glucose 210 H
Calcium 8.5
Vital Signs:
Vital Signs
Temp Pulse Resp BP Pulse Ox
98 F 101 23 113/89 99
06/06/24 07:31 06/06/24 08:45 06/06/24 08:45 06/06/24 08:45 06/06/24 08:45
I&O
06/05/24 06/06/24 06/07/24
06:59 06:59 06:59
Intake Total 830 / 830 360 / 360
Output Total 750 / 750 900 / 900
Balance 80 / 80 -540 / -540
Data Reviewed
-
Total Time Spent with Patient (in minutes): 58
[2024-06-06] MEDS: NOVOLOG FLEXPEN-MODERATE RESISTANCE 7 UNITS SC (11:25)
[2024-06-06 11:32] LABS: Glucose - Point of Care 317 mg/dl (70-99)
[2024-06-06] MEDS: ProAmatine PO ×2 (14:35→17:10)
[2024-06-06 16:42] LABS: Glucose - Point of Care 277 mg/dl (70-99)
--- NOTE | 2024-06-06 16:43 | PTCARENOTE ---
Pt arrived to 4 W from IMU via bed. Pt AAOx3, on tele sinus 90s bpm. Pt has large bruise on the L side of her face and R elbow abrasion. Purewick removed and pt explained to press the call button when having to use the bathroom. Pt oriented to call
[place] and room, bed locked and in lowest position, call [place] within reach.
[2024-06-06] MEDS: NOVOLOG FLEXPEN-MODERATE RESISTANCE 5 UNITS SC (17:09)
[2024-06-06] MEDS: LASIX 20 MG PO (20:26)
[2024-06-06 21:15] LABS: Glucose - Point of Care 414 mg/dl (70-99)
[2024-06-06 21:59] LABS: Glucose 385 mg/dl (70-99)
[2024-06-06] MEDS: LANTUS 0.25 UNITS SC (22:25)
[2024-06-06] MEDS: NOVOLOG FLEXPEN 8 UNITS SC (22:26)
[2024-06-06] MEDS: LIPITOR 10 MG PO (22:26)
[2024-06-07 00:19] LABS: Glucose - Point of Care 295 mg/dl (70-99)
[2024-06-07] MEDS: MAXIPIME 2000 MG IV ×3 (01:28→18:35)
[2024-06-07] MEDS: STERILE WATER FOR INJECTION 10 ML IV ×3 (01:28→18:35)
[2024-06-07] MEDS: SYNTHROID 137 MCG PO (06:11)
[2024-06-07 06:48] LABS: Blood Urea Nitrogen 32 mg/dl (7-17); Carbon Dioxide 27 mmol/L (22-30); Chloride 100 mmol/L (98-107); Estimated Creatinine Clearance 63 ml/min; Glucose 98 mg/dl (70-99); Phosphorus 2.2 mg/dl (2.5-4.5); Potassium 3.9 mmol/L (3.5-5.1); Sodium 137 mmol/L (135-145); eGFR > 60.00
[2024-06-07 07:03] LABS: Hematocrit 36.5 % (37.0-47.0); Hemoglobin 12.6 g/dL (12.0-16.0); Mean Corp Hgb Conc. 34.5 g/dL (33.0-37.0); Mean Corpuscular Hgb 31.4 pg (27.0-31.0); Mean Platelet Volume 10.2 fL (7.4-10.4); Platelet Count 171 10^3/uL (130-400); Red Blood Cell Count 4.01 10^6/uL (4.20-5.40); Red Cell Dist. Width 15.1 % (11.5-14.5); White Blood Cell Count 7.1 10^3/uL (4.8-10.8)
[2024-06-07] MEDS: DUONEB 3 ML INH ×3 (07:15→19:24)
[2024-06-07] MEDS: PULMICORT 0.5 MG INH ×2 (07:15→19:24)
[2024-06-07 07:27] VITALS: BP 136/89
[2024-06-07 07:40] LABS: Glucose - Point of Care 99 mg/dl (70-99)
[2024-06-07 08:46] LABS: Absolute Neutrophils -Man Diff 5.8 10^3/uL (1.4-6.5); Band Neutrophils 5 % (0-3); Segmented Neutrophils 77 % (42-75)
[2024-06-07 08:47] LABS: Lymphocytes 7 % (20-51); Metamyelocytes 6 % (-); Monocytes 2 % (2-9); Myelocytes 3 % (-)
[2024-06-07 08:48] LABS: Normal RBC Morphology Yes; Platelets Checked Yes
[2024-06-07 08:49] LABS: Total Cells Counted 100
[2024-06-07] MEDS: NOVOLOG FLEXPEN-MODERATE RESISTANCE SC ×2 (09:15→16:30)
[2024-06-07] MEDS: DESENEX/MITRAZOL/ZEASORB 1 APPLIC TOPICAL ×2 (09:34→20:28)
[2024-06-07] MEDS: KEPPRA 500 MG PO ×2 (09:35→20:27)
[2024-06-07] MEDS: ProAmatine PO ×2 (09:35→18:34)
[2024-06-07] MEDS: DELTASONE 40 MG PO (09:36)
[2024-06-07] MEDS: LASIX 20 MG PO ×2 (09:36→20:27)
[2024-06-07] MEDS: PROTONIX 40 MG PO (09:36)
[2024-06-07] MEDS: PACERONE 200 MG PO (09:36)
[2024-06-07] MEDS: NOVOLOG FLEXPEN 10 UNITS SC ×3 (09:36→18:35)
[2024-06-07] MEDS: ELIQUIS 5 MG PO ×2 (09:36→20:28)
[2024-06-07] MEDS: LANTUS 0.3 UNITS SC (09:38)
--- NOTE | 2024-06-07 10:29 | W.PN.ONC2 ---
Today's Communication / Plan
-
Patient to see Dr. Wheeler outpatient in the clinic for evaluation. PET/CT required for restaging.
Continue all management per primary medical team
Discharge to SNF prior to management of lung cancer
Impression
Impression
73-year-old female with history of stage IIIb lung cancer with brain metastasis, previously in remission, now presenting with concern of recurrence of lung cancer.
Plan
Plan
Subjective/Objective
Chief Complaint
Oncology progress note
Subjective
Patient reports feeling very tired today. She reports no nausea, vomiting, diarrhea, constipation, shortness of breath or chest pain.
Vital Signs:
Vital Signs
Temp Pulse Resp BP Pulse Ox
97.8 F 93 18 136/89 96
06/07/24 07:27 06/07/24 07:27 06/07/24 07:27 06/07/24 07:27 06/07/24 07:27
Lab Results:
Laboratory Data
WBC 7.1 10^3/uL (4.8-10.8) 06/07/24 06:08
Hgb 12.6 g/dL (12.0-16.0) 06/07/24 06:08
Plt Count 171 10^3/uL (130-400) D 06/07/24 06:08
eGFR > 60.00 06/07/24 06:08
Physical Exam
General: Alert and oriented x 3, conversant, resting comfortably in bed
Review of Systems
Review of Systems
All reviewed and negative unless otherwise stated
[2024-06-07 11:10] VITALS: BP 103/75
[2024-06-07 11:41] LABS: Glucose - Point of Care 237 mg/dl (70-99)
--- NOTE | 2024-06-07 12:49 | W.PN.PUL3 ---
Today's Communication / Plan
-
Continue secretion clearance interventions
DuoNebs 3 times a day
Pulmicort twice a day
Acapella device
Prednisone
Incentive spirometer
Aspiration precautions
Continue current antibiotics will complete total of 7 days
Assessment
-
Assessment: 73-year-old female with a past medical history of COPD, right-sided NSCLC (adenocarcinoma) s/p chemo (last chemotherapy given in 2018) + XRT with mets to brain s/p gamma knife radiation, history pneumonia, esophageal stricture s/p
esophageal dilation (September 2023), paroxysmal A-fib on Eliquis, hypothyroidism and history of melanoma who presents with AMS, cough, lower extremity swelling + weakness. She recently fell in her bathroom on 05/24/2024 and has left-sided periorbital
swelling/bruising. Head/facial bone CT from 05/24/2024 shows no acute intracranial abnormality with evidence of left temporal craniotomy. Also no facial bone fracture. Her cough has been ongoing for about 2-3 weeks now. She saw her PCP recently
who prescribed a week of antibiotics (cefuroxime). Second week was prescribed due to minimal improvement. She is also been feeling more confused and lethargic lately. No fevers or chills at home. Lower extremity swelling has also been worsening
as per the patient's sister, Isela. In the ER she was afebrile to 98.3 �F, tachycardic to 107 bpm, breathing at 18-24 breaths/min, BP 101/76 and saturating 98% on room air. Labs showed leukocytosis to 14.4, 15% bands, sodium 129, serum
bicarbonate level 17, lactate 2.5, ALT 37, proBNP 737, troponin negative at <0.012, procalcitonin elevated at 0.59, and COVID antigen negative. Blood cultures were collected. CXR showed RUL scarring with no acute cardiopulmonary process. CT of
the chest then done showing no acute PE showing concern for recurrent right lung metastatic disease with superimposed infectious/inflammatory bronchiolitis throughout the right lower lobe. Patient given IVF with 2.3 L of NS 0.9%, cefepime and IV
vancomycin. Patient admitted to the IMU under the hospitalist and pulmonary consulted for additional management/recommendations.
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
hoarseness
Impression:
#RLL pneumonia with suspicion for recurrent RUL lung cancer
#Sepsis without shock due to above
#New SAMUEL spiculated pulmonary nodule (measuring 15mm)
#Hypokalemia - resolved
#Hyperglycemia
#Large hiatal hernia with severe esophageal fluid distention
#Subclinical hypothyroidism
#Chronic RLL pleural effusion
#COPD/centrilobular emphysema with acute exacerbation
#Chronic steroid use with Decadron 2 mg PO BID
#Former tobacco smoker (60-PY Hx; quit 2018)
Plan:
- Continue with broad-spectrum antibiotics � currently on cefepime Since 06/04/2024-complete total 7 days of antibiotics.
- Given large hiatal hernia, dilated esophagus with air-fluid levels cannot rule out recurrent aspiration.
- Afebrile/No leukocytosis/not on supplemental oxygen
- IV vanco DC'd given negative MRSA swab
-All cultures negative so far.
- Repeat CT chest without contrast in 4-6 weeks to follow pneumonia to resolution versus a PET/CT for restaging. Oncology correspondence reviewed. I will defer further imaging to oncology.
Significantly pulmonary congestion on exam: Difficulty expectorating. Bilateral rhonchi.
- Maintain SpO2 88-95% with supplemental O2 and wean as tolerated
- Continue systemic steroids with prednisone --> wean by 10mg every 4th day until back at her home dose of decadron 2mg BID
- DuoNebs increased to 3 times daily with budesonide BID and prn albuterol for breakthrough symptoms
- Incentive spirometer encouraged 10x per hour for at least 4 hrs a day
-Will add Acapella device
- Check ambulatory pulse oximetry prior to discharge
- Maintain euglycemia with goal BG >100 and <180; defer to primary team.
Not ready for discharge. Continue symptomatic management. Continue with secretion clearance interventions as above.
Hopefully can be discharged in the next 24 to 48 hours.
- DVT ppx: Eliquis
Pulmonary service will continue to follow along. She will need repeat CT chest in about 4-6 weeks and outpatient follow-up. She already follows with us in the office with Dr. Frias, last visit on 10/24/2023.

Data:
CTA Chest 06/03/2024:
1. No evidence of pulmonary embolism.
2. Interval progression/recurrence of right lung pulmonary neoplasm with new pulmonary metastatic disease. Probable superimposed infectious/inflammatory bronchiolitis throughout the right lower lobe.
Total time spent today was 35 minutes for this encounter. Time includes reviewing laboratory test/imaging results, reviewing pertinent medical records, obtaining and reviewing medical history, performing an appropriate exam, ordering medications,
tests and procedures. Time also includes documentation of this encounter, coordinating patient care and communicating with other healthcare professionals. Total time does not include separately billed tests performed on this date of service.
Subjective Data
-
Date of Service:
Date of Service: June 07, 2024
Chief Complaint: Pulmonary Follow Up (Pneumonia/recurrent lung cancer)
Subjective:
Continues to report cough and congestion.
Afebrile
Difficulty expectorating
Review of Systems
General: Fever (n)
Cardiopulmonary: Dyspnea (none at rest)
GI: Abdominal Pain (n) and Nausea (n)
Objective Data
Data Reviewed
Vital Signs / I&O / Oxygen:
Vital Signs
Temp Pulse Resp BP Pulse Ox
98.3 F 100 20 103/75 95
06/07/24 11:10 06/07/24 11:10 06/07/24 11:10 06/07/24 11:10 06/07/24 11:10
Intake and Output
06/06/24 06/07/24 06/08/24
06:59 06:59 06:59
Intake Total 360 / 360 720 / 720
Output Total 900 / 900
Balance -540 / -540 720 / 720
SaO2 95
Nasal Cannula flow liters per 2
minute
Physical Exam
General: Respiratory Distress (negative), Comfortable, Chills (negative) and Sweats (negative)
HEENT: Normocephalic and Anicteric
Cardiovascular: S1-S2 and Peripheral Edema (+2 lower extremity edema bilaterally (L >R))
Respiratory: Wheeze (negative), Crackles (Bibasilar (L >R)), Rhonchi (Right greater than left) and Non-Labored Respirations
GI: Soft, Non Distended, Non Tender and Normal Bowel Sounds
Neurology: AO x 3 and Tremors (negative)
Skin: Warm, Dry and Jaundice (negative)
Labs/Micro/Reports
Lab Data
06/07/24 06:08
06/07/24 06:08
Microbiology
06/03/24 19:05 Blood/Venous Blood Culture - Preliminary
No Growth in 72 hours- Final report to follow
06/03/24 19:05 Blood/Venous Blood Culture - Preliminary
No Growth in 72 hours- Final report to follow
06/04/24 09:49 Nose Nasal Screen MRSA (PCR) - Final
MRSA not detected - performed by PCR methodology.
06/04/24 09:49 Urine Legionella Urinary Antigen - Final
Negative for Legionella pneumophila Serogroup 1 antigen.
A negative result does not rule out the possiblity of
Legionella infection due to other serogroups or species of
Legionella. Clinical correlation is recommended.
[2024-06-07] MEDS: NOVOLOG FLEXPEN-MODERATE RESISTANCE 3 UNITS SC (13:13)
[2024-06-07 13:15] VITALS: BP 135/85; PULSE 99; O2SAT 93
[2024-06-07] MEDS: ProAmatine 5 MG PO (13:17)
--- NOTE | 2024-06-07 14:52 | W.PN.HOSP.TC ---
Today's Communication/Plan
-
continue current Tx
Assessment / Plan
Assessment / Plan
Acute hypoxic respiratory insufficiency likely secondary to patient with likely recurrent metastatic lung ca with super-imposed infection and AECOPD
Sepsis likely 2/2 pna-poa
Bandemia resolved
- Tried on oral abx as an outpatient for 2 weeks with no improvements. Negative COVID.
- Blood cultures in lab negative so far . Urine Legionella negative. Await for sputum sample.
- MRSA screen negative. DC Vanco. Continue with cefepime.
- supportive care with supplemental oxygen and cough suppression
- incentive spirometry. Negative for pulmonary embolism.
- pulmonary consulted, discussed with Dr. Puga
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
-History of Lung CA in remission s/p radiation and chemotherapy. w/mets to brain s/p requiring steroids, stereotactic radiosurgery 2021.
- Followed by Dr. Arango. Last CT was free of Ca about 6 months ago. But has been having a subacute to chronic non-productive cough that turned productive 4/5 days ago. No hemoptysis.
- CT chest showing Redemonstration of medial right upper lobe/perihilar scarring and consolidation with volume loss. There is increased subpleural/tree-in-bud nodularity throughout the right lower lobe. New 1.5 cm spiculated left upper lobe nodule.
Stable small loculated right pleural effusion. No pericardial effusions, or enlarged lymph nodes in the thorax.
- oncology consultation -Recommend OP f/u with Dr. Wheeler for PET/CT
- supportive care for now. Continue with keppra
Acute COPD exacerbation
Chronic steroids usage
-Started on prednisone taper regimen per pulm
-cont with bronchodilators
DM uncontrolled
-POC significantly elevated and worsened due to steroids
-started basal/bolus reigment. Lantus 30 units daily 25 units nightly. Continue with bolus regimen of 10 units insulin sliding scale
-adjust insulin as needed
-A1C at 12.2
Hypotension
-start midodrine low dose and adjust prn
Chronic HFpEF
-Cont lasix 20mg BID home dose
Pseudohyponatremia secondary to hyperglycemia
-resolved.
Paroxysmal atrial fibrillation
- continue amiodarone
- continue eliquis
- Monitor on tele
Esophagus stricture likely secondary to radiation status post dilatation
History of large hiatal hernia
-Monitor symptoms. Cont PPI.
Subclinical hypothyroidism
-Synthroid dose increased 137mcg as TSH 17.50
-repeat TFT 4-6 weeks
Suspected ambulatory dysfunction
-PT/OT
DVT PPX - on eliquis
Code Status -Full code
PT/OT-plan for SNF on discharge
Met with sister/POAIsela many questions and concerns, 25 minutes reviewing many aspects of current situation
Reviewed with Dr. Puga timing of dc, wants to complete current abx tx
total time 55 minutes
Anticipated Discharge: 24 - 48 hours
Subjective/Interval History
-
Date of Service: June 07, 2024
Remains weak
Objective Data
-
Labs:
Laboratory Results
06/07/24
06:08
WBC 7.1
Hgb 12.6
Hct 36.5 L
Plt Count 171 D
Sodium 137
Potassium 3.9
Chloride 100
Carbon Dioxide 27
BUN 32 H
Creatinine 0.8
Glucose 98
Calcium 9.0
Vital Signs:
Vital Signs
Temp Pulse Resp BP Pulse Ox
98.3 F 101 20 104/75 95
06/07/24 11:10 06/07/24 13:17 06/07/24 11:10 06/07/24 13:17 06/07/24 11:10
I&O
06/06/24 06/07/24 06/08/24
06:59 06:59 06:59
Intake Total 360 / 360 720 / 720
Output Total 900 / 900
Balance -540 / -540 720 / 720
Review of Systems
-
History Source: Patient and Family (sister/GAVIN Weiss in room with obvious decision maker)
Constitutional: Reports No Symptoms; Denies Fever
EENT: Reports No Symptoms Reported
Respiratory: Reports Cough; Denies Trouble Breathing (better)
Cardiac: Reports No Symptoms; Denies Chest Pain
Abdomen/GI: Reports No Symptoms; Denies Abdominal Pain
Genitourinary: Reports No Symptoms; Denies Dysuria
Physical Exam
-
General: Well Developed and Appears Chronically Ill
HEENT: Normocephalic, Atraumatic and Moist Mucous Membranes
Respiratory: Other (coarse BS with shallow respirations, rhonchus cough on forced expiration)
Cardiac: Regular Rhythm and S1/S2
GI: Soft, Nontender and Nondistended
Musculoskeletal: No Clubbing, No Cyanosis and No Edema
Neuro: Awake, Alert and Oriented
[2024-06-07 15:29] VITALS: BP 130/97
--- NOTE | 2024-06-07 16:03 | CM ---
CM reviewed chart, met with patient bedside. Patient reports history of [facility], patient agreeable to [facility] upon discharge, referral placed in [facility]. CM will continue to follow for all discharge planning needs.
Plan; SNF pending accepting facility, patient requesting [facility].
[2024-06-07 16:13] LABS: Glucose - Point of Care 124 mg/dl (70-99)
[2024-06-07 18:35] VITALS: BP 123/85
[2024-06-07] MEDS: LIPITOR 10 MG PO (21:37)
[2024-06-07] MEDS: LANTUS 0.25 UNITS SC (21:37)
[2024-06-07 21:39] LABS: Glucose - Point of Care 221 mg/dl (70-99)
[2024-06-07 23:25] VITALS: BP 114/75
[2024-06-08] VITALS (7 sets, daily range): BP systolic 107–138; BP diastolic 61–78; O2SAT 98; BMI 27.2
[2024-06-08] MEDS: STERILE WATER FOR INJECTION 10 ML IV ×3 (01:29→17:43)
[2024-06-08] MEDS: MAXIPIME 2000 MG IV ×3 (01:29→17:43)
[2024-06-08] MEDS: SYNTHROID 137 MCG PO (05:09)
[2024-06-08] MEDS: PULMICORT 0.5 MG INH ×2 (07:14→19:22)
[2024-06-08] MEDS: DUONEB 3 ML INH ×2 (07:14→19:22)
[2024-06-08 08:21] LABS: Glucose - Point of Care 85 mg/dl (70-99)
[2024-06-08] MEDS: LASIX 20 MG PO ×2 (09:36→19:40)
[2024-06-08] MEDS: KEPPRA 500 MG PO ×2 (09:36→19:40)
[2024-06-08] MEDS: ELIQUIS 5 MG PO ×2 (09:36→19:40)
[2024-06-08] MEDS: PACERONE 200 MG PO (09:36)
[2024-06-08] MEDS: DESENEX/MITRAZOL/ZEASORB 1 APPLIC TOPICAL ×2 (09:36→19:40)
[2024-06-08] MEDS: PROTONIX 40 MG PO (09:37)
[2024-06-08] MEDS: DELTASONE 40 MG PO (09:37)
[2024-06-08] MEDS: NOVOLOG FLEXPEN-MODERATE RESISTANCE SC (09:37)
[2024-06-08] MEDS: ProAmatine PO ×3 (09:38→18:15)
[2024-06-08] MEDS: LANTUS 0.3 UNITS SC (10:30)
--- NOTE | 2024-06-08 11:08 | W.PN.ONC ---
Today's Communication / Plan
-
Continue abx per primary team
Plan for d/c to rehab, discussed the importance of rehab prior to any further cancer treatment
PET scheduled for ~Jul 02, with Dr. Summer tang/gian the next week
Onc will sign off, please call w/ any questions
Impression
Impression
73-year-old female with history of stage IIIb lung cancer with brain metastasis, previously in remission, now presenting with pneumonia and concern of recurrence of lung cancer.
Cognitive changes in the setting of prior treatment for brain mets, head CT w/ no acute findings
Plan
Plan
Continue abx per primary team
Plan for d/c to rehab, discussed the importance of rehab prior to any further cancer treatment
PET scheduled for ~Jul 02, with Dr. Summer tang/gian the next week
Onc will sign off, please call w/ any questions
Subjective/Objective
Subjective/Objective
some word finding difficulty, wet cough
sister and another family member at bedside
Vital Signs:
Vital Signs
Temp Pulse Resp BP Pulse Ox
98.3 F 74 29 107/61 96
06/08/24 07:40 06/08/24 07:40 06/08/24 07:40 06/08/24 07:40 06/08/24 07:40
Lab Results:
Laboratory Data
WBC 7.1 10^3/uL (4.8-10.8) 06/07/24 06:08
Hgb 12.6 g/dL (12.0-16.0) 06/07/24 06:08
Plt Count 171 10^3/uL (130-400) D 06/07/24 06:08
eGFR > 60.00 06/07/24 06:08
[2024-06-08] MEDS: NOVOLOG FLEXPEN SC (11:11)
[2024-06-08 11:39] LABS: Glucose - Point of Care 277 mg/dl (70-99)
--- NOTE | 2024-06-08 12:17 | W.PN.PUL3 ---
Today's Communication / Plan
-
Cont. AB for additional 2 days.
Tapering prednisone
Nebs- continue after DC
Cont. Secretion clearance interventions.
For MRI later today.
Will follow
Assessment
-
Assessment: 73-year-old female with a past medical history of COPD, right-sided NSCLC (adenocarcinoma) s/p chemo (last chemotherapy given in 2018) + XRT with mets to brain s/p gamma knife radiation, history pneumonia, esophageal stricture s/p
esophageal dilation (September 2023), paroxysmal A-fib on Eliquis, hypothyroidism and history of melanoma who presents with AMS, cough, lower extremity swelling + weakness. She recently fell in her bathroom on 05/24/2024 and has left-sided periorbital
swelling/bruising. Head/facial bone CT from 05/24/2024 shows no acute intracranial abnormality with evidence of left temporal craniotomy. Also no facial bone fracture. Her cough has been ongoing for about 2-3 weeks now. She saw her PCP recently
who prescribed a week of antibiotics (cefuroxime). Second week was prescribed due to minimal improvement. She is also been feeling more confused and lethargic lately. No fevers or chills at home. Lower extremity swelling has also been worsening
as per the patient's sister, Isela. In the ER she was afebrile to 98.3 �F, tachycardic to 107 bpm, breathing at 18-24 breaths/min, BP 101/76 and saturating 98% on room air. Labs showed leukocytosis to 14.4, 15% bands, sodium 129, serum
bicarbonate level 17, lactate 2.5, ALT 37, proBNP 737, troponin negative at <0.012, procalcitonin elevated at 0.59, and COVID antigen negative. Blood cultures were collected. CXR showed RUL scarring with no acute cardiopulmonary process. CT of
the chest then done showing no acute PE showing concern for recurrent right lung metastatic disease with superimposed infectious/inflammatory bronchiolitis throughout the right lower lobe. Patient given IVF with 2.3 L of NS 0.9%, cefepime and IV
vancomycin. Patient admitted to the IMU under the hospitalist and pulmonary consulted for additional management/recommendations.
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
hoarseness
Impression:
#RLL pneumonia with suspicion for recurrent RUL lung cancer
#Sepsis without shock due to above
#New SAMUEL spiculated pulmonary nodule (measuring 15mm)
#Hypokalemia - resolved
#Hyperglycemia
#Large hiatal hernia with severe esophageal fluid distention
#Subclinical hypothyroidism
#Chronic RLL pleural effusion
#COPD/centrilobular emphysema with acute exacerbation
#Chronic steroid use with Decadron 2 mg PO BID
#Former tobacco smoker (60-PY Hx; quit 2018)
Plan:
- Continue with broad-spectrum antibiotics � currently on cefepime Since 06/04/2024-complete total 7 days of antibiotics. Last day on 06/09/2024. May transition to Augmenting upon DC if has not completed full course upon DC.
- Given large hiatal hernia, dilated esophagus with air-fluid levels cannot rule out recurrent aspiration.
- Afebrile/No leukocytosis/not on supplemental oxygen as of 06/08/2024
- IV vanco DC'd given negative MRSA swab
-All cultures negative so far.
- Pt has difficulty expectorating.
-Repeat CT chest without contrast in 4-6 weeks to follow pneumonia to resolution versus a PET/CT for restaging. Oncology correspondence reviewed. I will defer further imaging to oncology.
Not bronchoscpastic on exam 06/08/2024: Difficulty expectorating. Intermittent ronchi.
- Continue systemic steroids with prednisone --> wean by 10mg every 4th day until back at her home dose of decadron 2mg BID
Upon DC to [facility] - please continue nebs:
- DuoNebs 3 times daily with budesonide BID and prn albuterol for breakthrough symptoms
- Incentive spirometer encouraged.
-Acapella device encouraged.
- Does not require supplemental oxygen with PT.
- Oncology correspondence reviewed- outpx eval, eventual PET for restaging. Eventual MRI brain.
- DVT ppx: Eliquis
Dr. Puga updated sister at bedside on 06/08/2024
Pulmonary service will continue to follow along. She already follows with us in the office with Dr. Frias, last visit on 10/24/2023. Oupx follow up in 2-3weeks.
Hopefully ready for DC in 24-48hrs, going to [facility].

Data:
CTA Chest 06/03/2024:
1. No evidence of pulmonary embolism.
2. Interval progression/recurrence of right lung pulmonary neoplasm with new pulmonary metastatic disease. Probable superimposed infectious/inflammatory bronchiolitis throughout the right lower lobe.
Total time spent today was 35 minutes for this encounter. Time includes reviewing laboratory test/imaging results, reviewing pertinent medical records, obtaining and reviewing medical history, performing an appropriate exam, ordering medications,
tests and procedures. Time also includes documentation of this encounter, coordinating patient care and communicating with other healthcare professionals. Total time does not include separately billed tests performed on this date of service.
Subjective Data
-
Date of Service:
Date of Service: June 08, 2024
Chief Complaint: Pulmonary Follow Up (Pneumonia/recurrent lung cancer)
Subjective:
Overall feels better.
Still with difficulty expectorating.
Off supplemental oxygen.
Denies SOB at rest.
Review of Systems
Cardiopulmonary: Dyspnea on Exertion (improved) and Cough
GI: Abdominal Pain (n) and Nausea (n)
Objective Data
Data Reviewed
Vital Signs / I&O / Oxygen:
Vital Signs
Temp Pulse Resp BP Pulse Ox
98.3 F 97 19 109/78 99
06/08/24 11:25 06/08/24 11:25 06/08/24 11:25 06/08/24 11:25 06/08/24 11:25
Intake and Output
06/07/24 06/08/24 06/09/24
06:59 06:59 06:59
Intake Total 720 / 720 1572 / 1572
Balance 720 / 720 1572 / 1572
SaO2 99
Nasal Cannula flow liters per 2
minute
Physical Exam
General: Respiratory Distress (negative), Comfortable, Chills (negative), Sweats (negative) and Other (Able to speak in full sentences)
HEENT: Normocephalic and Anicteric
Cardiovascular: S1-S2 and Peripheral Edema (+2 lower extremity edema bilaterally (L >R))
Respiratory: Wheeze (negative), Crackles (Bibasilar (L >R)), Rhonchi (intermittent. ) and Non-Labored Respirations
GI: Soft, Non Distended, Non Tender and Normal Bowel Sounds
Neurology: AO x 3 and Tremors (negative)
Skin: Warm, Dry and Jaundice (negative)
Labs/Micro/Reports
Lab Data
06/07/24 06:08
06/07/24 06:08
Microbiology
06/03/24 19:05 Blood/Venous Blood Culture - Preliminary
No Growth in 4 days- Final report to follow
06/03/24 19:05 Blood/Venous Blood Culture - Preliminary
No Growth in 4 days- Final report to follow
[2024-06-08] MEDS: NOVOLOG FLEXPEN 10 UNITS SC ×2 (13:05→16:31)
[2024-06-08] MEDS: NOVOLOG FLEXPEN-MODERATE RESISTANCE 5 UNITS SC (13:05)
[2024-06-08] MEDS: DUONEB INH (13:42)
--- NOTE | 2024-06-08 13:44 | RESPNOTE ---
Attempt made to ambulate patient-- Resting RA in bed 96%
Patient to go for MRI and needing PT and RN to walk approx 15-20 ft to stretcher in hallway. Pulse Ox remained 94-96% on RA
[2024-06-08 15:45] LABS: COVID-19 Antigen Negative (Negative)
[2024-06-08 16:23] LABS: Glucose - Point of Care 325 mg/dl (70-99)
[2024-06-08] MEDS: NOVOLOG FLEXPEN-MODERATE RESISTANCE 7 UNITS SC (16:31)
--- NOTE | 2024-06-08 18:25 | W.PN.HOSP.TC ---
Today's Communication/Plan
-
DC oral Decadron with pt on Prednisone
follow glu on insulin
Assessment / Plan
Assessment / Plan
Acute hypoxic respiratory insufficiency likely secondary to patient with likely recurrent metastatic lung ca with super-imposed infection, most likely aspiration PNA, possibly obstructive PNA and AECOPD
Sepsis likely 2/2 pna-poa
Bandemia resolved
- Tried on oral abx as an outpatient for 2 weeks with no improvements. Negative COVID.
- Blood cultures in lab negative so far . Urine Legionella negative. Await for sputum sample.
- MRSA screen negative. DC Vanco. Continue with cefepime.
- supportive care with supplemental oxygen and cough suppression
- incentive spirometry. Negative for pulmonary embolism.
- pulmonary consulted, discussed with Dr. Puga
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
-History of Lung CA in remission s/p radiation and chemotherapy. w/mets to brain s/p requiring steroids, stereotactic radiosurgery 2021.
- Followed by Dr. Arango. Last CT was free of Ca about 6 months ago. But has been having a subacute to chronic non-productive cough that turned productive 4/5 days ago. No hemoptysis.
- CT chest showing Redemonstration of medial right upper lobe/perihilar scarring and consolidation with volume loss. There is increased subpleural/tree-in-bud nodularity throughout the right lower lobe. New 1.5 cm spiculated left upper lobe nodule.
Stable small loculated right pleural effusion. No pericardial effusions, or enlarged lymph nodes in the thorax.
- oncology consultation -Recommend OP f/u with Dr. Wheeler for PET/CT
- supportive care for now. Continue with keppra
Input of Dr. Ospina appreciated. Pt to have PET/CT scan on ~Jul 02 with f/u with Dr. Wheeler following day
Concern for possible metastatic disease to the brain, MRI just completed:Status post left inferolateral craniotomy. Adjacent encephalomalacia.
There is subtle mild enhancement along the periphery of this focal area of encephalomalacia. This is most likely postsurgical enhancement as a benign finding, but residual/recurrent neoplastic disease at the margins of the area of encephalomalacia
cannot be excluded. If any previous examinations can be obtained, comparison would be useful. If no previous examinations are available, continued MR follow-up would be advised.
Partially empty sella. This is often an incidental finding of no clinical significance, although it does have an association with idiopathic intracranial hypertension. Many patients are asymptomatic and endocrinologically normal, although with some
increasing reports of variable hypopituitarism and hyperprolactinemia.
Moderate diffuse atrophy. Moderate T2 and FLAIR white matter hyperintensities, commonly seen with aging and usually attributed to small vessel ischemic disease. These hyperintensities have not been shown to correlate with a focal neurologic deficit.
Acute COPD exacerbation
Chronic steroids usage
-Started on prednisone taper regimen per pulm, will dc oral Decadron with plan to resume once off Prednisone
-cont with bronchodilators
DM uncontrolled
-POC significantly elevated and worsened due to steroids
-started basal/bolus regiment. Lantus 30 units daily 25 units nightly. Continue with bolus regimen of 10 units insulin sliding scale
-adjust insulin as needed
-A1C at 12.2
Hypotension
-start midodrine low dose and adjust prn
Chronic HFpEF
-Cont lasix 20mg BID home dose
Pseudohyponatremia secondary to hyperglycemia
-resolved.
Paroxysmal atrial fibrillation
- continue amiodarone
- continue eliquis
- Monitor on tele
Esophagus stricture likely secondary to radiation status post dilatation
History of large hiatal hernia
-Monitor symptoms. Cont PPI.
Subclinical hypothyroidism
-Synthroid dose increased 137mcg as TSH 17.50
-repeat TFT 4-6 weeks
Suspected ambulatory dysfunction
-PT/OT
DVT PPX - on eliquis
Code Status -Full code (discussed with POA, as per sister, this is what pt wants)
PT/OT-plan for SNF on discharge
Met with sister/POA, 06/08, Isela many questions and concerns, 25 minutes reviewing many aspects of current situation
Reviewed with Dr. Puga timing of dc of abx and rapidity of steroid taper, wants to complete current abx tx. He will reevaluate tomorrow
total time 55 minutes
Anticipated Discharge: 24 - 48 hours
Subjective/Interval History
-
Date of Service: June 08, 2024
Remains weak
Objective Data
-
Vital Signs:
Vital Signs
Temp Pulse Resp BP Pulse Ox
98.5 F 100 20 112/75 100
06/08/24 15:22 06/08/24 15:22 06/08/24 15:22 06/08/24 18:15 06/08/24 15:22
I&O
06/07/24 06/08/24 06/09/24
06:59 06:59 06:59
Intake Total 720 / 720 1572 / 1572 840 / 840
Output Total 600 / 600
Balance 720 / 720 1572 / 1572 240 / 240
Review of Systems
-
History Source: Patient and Family (sister/CHEA Isela in room with obvious decision maker)
Constitutional: Reports No Symptoms; Denies Fever
EENT: Reports No Symptoms Reported
Respiratory: Reports Cough; Denies Trouble Breathing (better)
Cardiac: Reports No Symptoms; Denies Chest Pain
Abdomen/GI: Reports No Symptoms; Denies Abdominal Pain
Genitourinary: Reports No Symptoms; Denies Dysuria
Neuro: Reports Weakness
Physical Exam
-
General: Well Developed and Appears Chronically Ill
HEENT: Normocephalic, Atraumatic and Moist Mucous Membranes
Respiratory: Other (coarse BS with shallow respirations, rhonchus cough on forced expiration)
Cardiac: Regular Rhythm and S1/S2
GI: Soft, Nontender and Nondistended
Musculoskeletal: No Clubbing, No Cyanosis and No Edema
Neuro: Awake, Alert and Oriented
[2024-06-08 21:11] LABS: Glucose - Point of Care 262 mg/dl (70-99)
[2024-06-08] MEDS: LIPITOR 10 MG PO (21:22)
[2024-06-08] MEDS: LANTUS 0.25 UNITS SC (21:22)
[2024-06-09] MEDS: MAXIPIME 2000 MG IV ×3 (01:00→17:34)
[2024-06-09] MEDS: STERILE WATER FOR INJECTION 10 ML IV ×3 (01:01→17:34)
[2024-06-09 03:09] VITALS: BP 132/86
[2024-06-09] MEDS: SYNTHROID 137 MCG PO (05:20)
[2024-06-09 07:22] VITALS: BP 105/58
[2024-06-09] MEDS: PULMICORT 0.5 MG INH ×2 (07:23→19:21)
[2024-06-09] MEDS: DUONEB 3 ML INH ×3 (07:23→19:21)
[2024-06-09 07:35] LABS: Glucose - Point of Care 76 mg/dl (70-99)
[2024-06-09] MEDS: ProAmatine PO ×3 (08:30→18:45)
[2024-06-09] MEDS: LANTUS SC (10:10)
[2024-06-09 10:31] LABS: Glucose - Point of Care 59 mg/dl (70-99)
[2024-06-09] MEDS: NOVOLOG FLEXPEN SC ×2 (10:36→12:00)
[2024-06-09] MEDS: DELTASONE 30 MG PO (10:36)
[2024-06-09] MEDS: ELIQUIS 5 MG PO ×2 (10:37→19:52)
[2024-06-09] MEDS: PROTONIX 40 MG PO (10:38)
[2024-06-09] MEDS: KEPPRA 500 MG PO ×2 (10:38→19:52)
[2024-06-09] MEDS: PACERONE 200 MG PO (10:38)
[2024-06-09] MEDS: LASIX 20 MG PO ×2 (10:38→19:53)
[2024-06-09] MEDS: DESENEX/MITRAZOL/ZEASORB 1 APPLIC TOPICAL ×2 (10:38→19:52)
[2024-06-09] MEDS: NOVOLOG FLEXPEN-MODERATE RESISTANCE SC ×2 (10:39→12:10)
[2024-06-09 10:52] LABS: Glucose - Point of Care 58 mg/dl (70-99)
[2024-06-09 11:10] LABS: Glucose - Point of Care 103 mg/dl (70-99)
--- NOTE | 2024-06-09 11:36 | CM ---
Addendum entered by Ally Mahmood 06/09/24 16:20:
CM reviewed with Cezar in admissions at [facility], can accept patient tomorrow. CM updated Hospitalist, confirmed transition to oral antibiotics upon discharge. Patient updated. Sister Lyubov updated, aware patient will require Van transport. CM
will continue to follow for all discharge planning needs.
Plan; [facility] tomorrow
Report: [phone]

Original Note:
Patient seen bedside with sister, discussed no beds at [facility]. Patient very tearful throughout conversation. Sister requesting referrals to [facility], [facility], and [facility]. Patients sister reports she will speak to her regarding
additional facilities. CM awaiting response of SNF regarding bed availability. CM will continue to follow for all discharge planning needs.
Plan: awaiting SNF bed
--- NOTE | 2024-06-09 12:03 | W.PN.PUL3 ---
Today's Communication / Plan
-
Continue aggressive secretion clearance interventions
Continue IV antibiotics for today
Prednisone taper
Monitor blood sugars
Continue nebulizer therapy
Hopefully discharge soon. Waiting for placement
Assessment
-
Assessment: 73-year-old female with a past medical history of COPD, right-sided NSCLC (adenocarcinoma) s/p chemo (last chemotherapy given in 2018) + XRT with mets to brain s/p gamma knife radiation, history pneumonia, esophageal stricture s/p
esophageal dilation (September 2023), paroxysmal A-fib on Eliquis, hypothyroidism and history of melanoma who presents with AMS, cough, lower extremity swelling + weakness. She recently fell in her bathroom on 05/24/2024 and has left-sided periorbital
swelling/bruising. Head/facial bone CT from 05/24/2024 shows no acute intracranial abnormality with evidence of left temporal craniotomy. Also no facial bone fracture. Her cough has been ongoing for about 2-3 weeks now. She saw her PCP recently
who prescribed a week of antibiotics (cefuroxime). Second week was prescribed due to minimal improvement. She is also been feeling more confused and lethargic lately. No fevers or chills at home. Lower extremity swelling has also been worsening
as per the patient's sister, Isela. In the ER she was afebrile to 98.3 �F, tachycardic to 107 bpm, breathing at 18-24 breaths/min, BP 101/76 and saturating 98% on room air. Labs showed leukocytosis to 14.4, 15% bands, sodium 129, serum
bicarbonate level 17, lactate 2.5, ALT 37, proBNP 737, troponin negative at <0.012, procalcitonin elevated at 0.59, and COVID antigen negative. Blood cultures were collected. CXR showed RUL scarring with no acute cardiopulmonary process. CT of
the chest then done showing no acute PE showing concern for recurrent right lung metastatic disease with superimposed infectious/inflammatory bronchiolitis throughout the right lower lobe. Patient given IVF with 2.3 L of NS 0.9%, cefepime and IV
vancomycin. Patient admitted to the IMU under the hospitalist and pulmonary consulted for additional management/recommendations.
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
hoarseness
Impression:
#RLL pneumonia with suspicion for recurrent RUL lung cancer
#Sepsis without shock due to above
#New SAMUEL spiculated pulmonary nodule (measuring 15mm)
#Hypokalemia - resolved
#Hyperglycemia
#Large hiatal hernia with severe esophageal fluid distention
#Subclinical hypothyroidism
#Chronic RLL pleural effusion
#COPD/centrilobular emphysema with acute exacerbation
#Chronic steroid use with Decadron 2 mg PO BID
#Former tobacco smoker (60-PY Hx; quit 2018)
Plan:
Overnight is stable: Continues to have a wet cough with difficulty expectorating. This likely will last for several weeks to primarily given significantly abnormal CT chest.
Continue symptomatic management/secretion clearance interventions.
-
- Continue with broad-spectrum antibiotics � currently on cefepime Since 06/04/2024-complete total 7 days of antibiotics. Last day on 06/09/2024.
- Given large hiatal hernia, dilated esophagus with air-fluid levels cannot rule out recurrent aspiration.
- Afebrile/No leukocytosis/not on supplemental oxygen as of 06/08/2024
- IV vanco DC'd given negative MRSA swab
-All cultures negative so far.
- Pt has difficulty expectorating.
-Repeat CT chest without contrast in 4-6 weeks to follow pneumonia to resolution versus a PET/CT for restaging. Oncology correspondence reviewed. I will defer further imaging to oncology.
Not bronchoscpastic on exam 06/09/2024: Difficulty expectorating. Intermittent ronchi.
- Continue systemic steroids with prednisone --> wean by 10mg every 4th day until back at her home dose of decadron 2mg BID
Upon DC to [facility] - please continue nebs:
- DuoNebs 3 times daily with budesonide BID and prn albuterol for breakthrough symptoms
- Incentive spirometer encouraged.
-Acapella device encouraged.
- Does not require supplemental oxygen with PT.
- Oncology correspondence reviewed- outpx eval, eventual PET for restaging.
MRI brain noted. No evidence for new metastatic disease.
- DVT ppx: Eliquis
Dr. Puga updated sister at bedside on 06/08/2024 and 06/09/2024
Pulmonary service will continue to follow along. She already follows with us in the office with Dr. Frias, last visit on 10/24/2023. Oupx follow up in 2-3weeks.
Waiting for placement. Hopefully discharge in the next 24 to 48 hours

Data:
CTA Chest 06/03/2024:
1. No evidence of pulmonary embolism.
2. Interval progression/recurrence of right lung pulmonary neoplasm with new pulmonary metastatic disease. Probable superimposed infectious/inflammatory bronchiolitis throughout the right lower lobe.
Subjective Data
-
Date of Service:
Date of Service: June 09, 2024
Chief Complaint: Pulmonary Follow Up (Pneumonia/recurrent lung cancer)
Subjective:
Continues to report a wet cough with difficulty expectorating
Today had mild hemoptysis mixed with phlegm.
Patient mostly bedbound
Review of Systems
Cardiopulmonary: Dyspnea, Cough, Sputum Production and Chest Pain (n)
GI: Abdominal Pain (n) and Nausea (n)
Objective Data
Data Reviewed
Vital Signs / I&O / Oxygen:
Vital Signs
Temp Pulse Resp BP Pulse Ox
97.6 F 51 16 105/58 92
06/09/24 07:22 06/09/24 07:26 06/09/24 07:26 06/09/24 07:22 06/09/24 07:26
Intake and Output
06/08/24 06/09/24 06/10/24
06:59 06:59 06:59
Intake Total 1572 / 1572 840 / 840
Output Total 950 / 950
Balance 1572 / 1572 -110 / -110
SaO2 92
Nasal Cannula flow liters per 2
minute
Physical Exam
General: Respiratory Distress (negative), Comfortable, Chills (negative), Sweats (negative) and Other (Able to speak in full sentences)
HEENT: Normocephalic and Anicteric
Cardiovascular: S1-S2 and Peripheral Edema (+2 lower extremity edema bilaterally (L >R))
Respiratory: Wheeze (negative), Crackles (Bibasilar (L >R)), Rhonchi (intermittent. ) and Non-Labored Respirations
GI: Soft, Non Distended, Non Tender and Normal Bowel Sounds
Neurology: AO x 3 and Tremors (negative)
Skin: Warm, Dry and Jaundice (negative)
Labs/Micro/Reports
Lab Data
06/07/24 06:08
06/07/24 06:08
Microbiology
06/03/24 19:05 Blood/Venous Blood Culture - Final
No Growth - Final Report
06/03/24 19:05 Blood/Venous Blood Culture - Final
No Growth - Final Report
[2024-06-09 14:48] VITALS: BP 101/73; O2SAT 93
--- NOTE | 2024-06-09 16:09 | W.PN.HOSP.TC ---
Today's Communication/Plan
-
potential dc to SNF tomorrow, will change abx to oral at that time.
reviewed with Pulm, BEKA, GAVIN, RN
Assessment / Plan
Assessment / Plan
Acute hypoxic respiratory insufficiency likely secondary to patient with likely recurrent metastatic lung ca with super-imposed infection, most likely aspiration PNA, possibly obstructive PNA and AECOPD
Sepsis likely 2/2 pna-poa
Bandemia resolved
- Tried on oral abx as an outpatient for 2 weeks with no improvements. Negative COVID.
- Blood cultures in lab negative so far . Urine Legionella negative. Await for sputum sample.
- MRSA screen negative. DC Vanco. Continue with cefepime.
Will change to oral abx at time of dc as discussed with Dr. Puga
- supportive care with supplemental oxygen and cough suppression
- incentive spirometry. Negative for pulmonary embolism.
- pulmonary consulted, discussed with Dr. Puga
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
-History of Lung CA in remission s/p radiation and chemotherapy. w/mets to brain s/p requiring steroids, stereotactic radiosurgery 2021.
- Followed by Dr. Arango. Last CT was free of Ca about 6 months ago. But has been having a subacute to chronic non-productive cough that turned productive 4/5 days ago. No hemoptysis.
- CT chest showing Redemonstration of medial right upper lobe/perihilar scarring and consolidation with volume loss. There is increased subpleural/tree-in-bud nodularity throughout the right lower lobe. New 1.5 cm spiculated left upper lobe nodule.
Stable small loculated right pleural effusion. No pericardial effusions, or enlarged lymph nodes in the thorax.
- oncology consultation -Recommend OP f/u with Dr. Wheeler with PET/CT prior to visit
- supportive care for now. Continue with keppra
Input of Dr. Ospina appreciated. Pt to have PET/CT scan on ~Jul 02 with f/u with Dr. Wheeler following day
Concern for possible metastatic disease to the brain, MRI just completed:Status post left inferolateral craniotomy. Adjacent encephalomalacia.
There is subtle mild enhancement along the periphery of this focal area of encephalomalacia. This is most likely postsurgical enhancement as a benign finding, but residual/recurrent neoplastic disease at the margins of the area of encephalomalacia
cannot be excluded. If any previous examinations can be obtained, comparison would be useful. If no previous examinations are available, continued MR follow-up would be advised.
Partially empty sella. This is often an incidental finding of no clinical significance, although it does have an association with idiopathic intracranial hypertension. Many patients are asymptomatic and endocrinologically normal, although with some
increasing reports of variable hypopituitarism and hyperprolactinemia.
Moderate diffuse atrophy. Moderate T2 and FLAIR white matter hyperintensities, commonly seen with aging and usually attributed to small vessel ischemic disease. These hyperintensities have not been shown to correlate with a focal neurologic deficit.
Acute COPD exacerbation
Chronic steroids usage
-Started on prednisone taper regimen per pulm, currently 30 mg daily, will resume oral Decadron at time of dc and continue slow wean off Prednisone
-cont with bronchodilators
DM uncontrolled
-POC significantly elevated and worsened due to steroids
-started basal/bolus regiment. Lantus 30 units daily 25 units nightly. Continue with bolus regimen of 10 units insulin sliding scale
-adjust insulin as needed
-A1C at 12.2
Hypotension
-start midodrine low dose and adjust prn
Chronic HFpEF
-Cont lasix 20mg BID home dose
Pseudohyponatremia secondary to hyperglycemia
-resolved.
Paroxysmal atrial fibrillation
- continue amiodarone
- continue eliquis
- Monitor on tele
Esophagus stricture likely secondary to radiation status post dilatation
History of large hiatal hernia
-Monitor symptoms. Cont PPI.
Subclinical hypothyroidism
-Synthroid dose increased 137mcg as TSH 17.50
-repeat TFT 4-6 weeks
Suspected ambulatory dysfunction
-PT/OT
DVT PPX - on eliquis
Code Status -Full code (discussed with POA, as per sister, this is what pt wants)
Met with sister (GAVIN) today, extensive review of situation
PT/OT-plan for SNF on discharge. Input from PT/OT appreciated
Received call from [facility] accept tomorrow, will plan dc then. to be on Augmentin. Dr. Puga believes pt has appt with [facility] already set up, he will check on this. Taper Prednisone 10 mg every 5 days
Anticipated Discharge: Within 24 hours
Subjective/Interval History
-
Date of Service: June 09, 2024
Looks a little better today
Objective Data
-
Vital Signs:
Vital Signs
Temp Pulse Resp BP Pulse Ox
97.6 F 72 16 124/83 94
06/09/24 07:22 06/09/24 13:21 06/09/24 13:21 06/09/24 13:15 06/09/24 13:21
I&O
06/08/24 06/09/24 06/10/24
06:59 06:59 06:59
Intake Total 1572 / 1572 840 / 840
Output Total 950 / 950
Balance 1572 / 1572 -110 / -110
Review of Systems
-
History Source: Patient and Family (sister/GAVIN Weiss in room with obvious decision maker)
Constitutional: Reports No Symptoms; Denies Fever
EENT: Reports No Symptoms Reported
Respiratory: Reports Cough; Denies Trouble Breathing (better)
Cardiac: Reports No Symptoms; Denies Chest Pain
Abdomen/GI: Reports No Symptoms; Denies Abdominal Pain
Genitourinary: Reports No Symptoms; Denies Dysuria
Neuro: Reports Weakness
Physical Exam
-
General: Well Developed and Appears Chronically Ill
HEENT: Atraumatic and Moist Mucous Membranes; Negative Normocephalic (bruise left side of face, POA, unchanged)
Respiratory: Other (takingdeee breaths, rhonchus cough on forced expiration)
Cardiac: Regular Rhythm and S1/S2
GI: Soft, Nontender and Nondistended
Musculoskeletal: No Clubbing, No Cyanosis and No Edema
Neuro: Awake, Alert and Oriented
[2024-06-09 16:43] VITALS: PULSE 81
[2024-06-09 16:57] LABS: Glucose - Point of Care 505 mg/dl (70-99)
[2024-06-09 16:59] LABS: Glucose - Point of Care 320 mg/dl (70-99)
[2024-06-09 17:05] LABS: Glucose - Point of Care 302 mg/dl (70-99)
[2024-06-09] MEDS: NOVOLOG FLEXPEN 10 UNITS SC (17:34)
[2024-06-09] MEDS: NOVOLOG FLEXPEN-MODERATE RESISTANCE 7 UNITS SC (17:35)
[2024-06-09 19:52] VITALS: BP 103/76
[2024-06-09] MEDS: LIPITOR 10 MG PO (19:53)
[2024-06-09 21:17] LABS: Glucose - Point of Care 286 mg/dl (70-99)
[2024-06-09] MEDS: LANTUS 0.25 UNITS SC (22:00)
[2024-06-09 23:15] VITALS: BP 101/66
[2024-06-10] MEDS: STERILE WATER FOR INJECTION 10 ML IV ×2 (02:29→10:39)
[2024-06-10] MEDS: MAXIPIME 2000 MG IV ×2 (02:29→10:39)
[2024-06-10 02:55] LABS: Glucose - Point of Care 140 mg/dl (70-99)
[2024-06-10 03:20] VITALS: BP 115/69
[2024-06-10] MEDS: SYNTHROID 137 MCG PO (05:58)
[2024-06-10] MEDS: PULMICORT 0.5 MG INH (07:39)
[2024-06-10] MEDS: DUONEB 3 ML INH ×2 (07:39→13:40)
[2024-06-10 07:58] VITALS: BP 114/81
[2024-06-10 08:03] LABS: Hematocrit 35.6 % (37.0-47.0); Hemoglobin 12.6 g/dL (12.0-16.0); Mean Corp Hgb Conc. 35.4 g/dL (33.0-37.0); Mean Corpuscular Hgb 30.9 pg (27.0-31.0); Mean Corpuscular Volume 87.3 fL (81.0-99.0); Mean Platelet Volume 10.5 fL (7.4-10.4); Platelet Count 207 10^3/uL (130-400); Red Blood Cell Count 4.08 10^6/uL (4.20-5.40); Red Cell Dist. Width 15.7 % (11.5-14.5); White Blood Cell Count 6.9 10^3/uL (4.8-10.8)
[2024-06-10 08:22] LABS: Blood Urea Nitrogen 27 mg/dl (7-17); Calcium 8.7 mg/dl (8.4-10.2); Carbon Dioxide 34 mmol/L (22-30); Chloride 93 mmol/L (98-107); Estimated Creatinine Clearance 63 ml/min; Glucose 80 mg/dl (70-99); Phosphorus 2.7 mg/dl (2.5-4.5); Potassium 3.7 mmol/L (3.5-5.1); Sodium 137 mmol/L (135-145); eGFR > 60.00
[2024-06-10 08:43] LABS: Glucose - Point of Care 94 mg/dl (70-99)
[2024-06-10 08:52] LABS: Absolute Neutrophils -Man Diff 6.2 10^3/uL (1.4-6.5); Band Neutrophils 11 % (0-3); Lymphocytes 5 % (20-51); Monocytes 1 % (2-9); Segmented Neutrophils 79 % (42-75)
[2024-06-10 08:53] LABS: Anisocytosis 1+; Basophilic Stippling Slight; Hypochromasia Slight; Metamyelocytes 3 % (-); Myelocytes 1 % (-); Normal RBC Morphology No; Platelets Checked Yes; Polychromasia 1+; Total Cells Counted 100
[2024-06-10] MEDS: NOVOLOG FLEXPEN SC (08:58)
[2024-06-10] MEDS: NOVOLOG FLEXPEN-MODERATE RESISTANCE SC (09:02)
--- NOTE | 2024-06-10 09:33 | W.PN.PUL3 ---
Today's Communication / Plan
-
Continue aggressive secretion clearance interventions
Last day of ABx today
Prednisone taper with eventual transition back to her home dose of decadron
Monitor blood sugars
Continue nebulizer therapy
Patient awaiting discharge to [facility] today. She already follows with us in the office with Dr. Frias, last visit on 10/24/2023. Oupx follow up in 2-3weeks.
Pulmonary service will now sign off. Please reconsult if there are any additional questions/concerns, or if patient's respiratory status deteriorates.
Assessment
-
Assessment: 73-year-old female with a past medical history of COPD, right-sided NSCLC (adenocarcinoma) s/p chemo (last chemotherapy given in 2018) + XRT with mets to brain s/p gamma knife radiation, history pneumonia, esophageal stricture s/p
esophageal dilation (September 2023), paroxysmal A-fib on Eliquis, hypothyroidism and history of melanoma who presents with AMS, cough, lower extremity swelling + weakness. She recently fell in her bathroom on 05/24/2024 and has left-sided periorbital
swelling/bruising. Head/facial bone CT from 05/24/2024 shows no acute intracranial abnormality with evidence of left temporal craniotomy. Also no facial bone fracture. Her cough has been ongoing for about 2-3 weeks now. She saw her PCP recently
who prescribed a week of antibiotics (cefuroxime). Second week was prescribed due to minimal improvement. She is also been feeling more confused and lethargic lately. No fevers or chills at home. Lower extremity swelling has also been worsening
as per the patient's sister, Isela. In the ER she was afebrile to 98.3 �F, tachycardic to 107 bpm, breathing at 18-24 breaths/min, BP 101/76 and saturating 98% on room air. Labs showed leukocytosis to 14.4, 15% bands, sodium 129, serum
bicarbonate level 17, lactate 2.5, ALT 37, proBNP 737, troponin negative at <0.012, procalcitonin elevated at 0.59, and COVID antigen negative. Blood cultures were collected. CXR showed RUL scarring with no acute cardiopulmonary process. CT of
the chest then done showing no acute PE showing concern for recurrent right lung metastatic disease with superimposed infectious/inflammatory bronchiolitis throughout the right lower lobe. Patient given IVF with 2.3 L of NS 0.9%, cefepime and IV
vancomycin. Patient admitted to the IMU under the hospitalist and pulmonary consulted for additional management/recommendations.
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
hoarseness
Impression:
#RLL pneumonia with suspicion for recurrent RUL lung cancer
#Sepsis without shock due to above
#New SAMUEL spiculated pulmonary nodule (measuring 15mm)
#Hypokalemia - resolved
#Hyperglycemia
#Large hiatal hernia with severe esophageal fluid distention
#Subclinical hypothyroidism
#Chronic RLL pleural effusion
#COPD/centrilobular emphysema with acute exacerbation
#Chronic steroid use with Decadron 2 mg PO BID
#Former tobacco smoker (60-PY Hx; quit 2018)
Plan:
Continues to have an ocassional wet cough with difficulty expectorating. This likely will last for several weeks to primarily given significantly abnormal CT chest.
Continue symptomatic management/secretion clearance interventions.
-
- Continue with broad-spectrum antibiotics � s/p 8 days of cefepime (06/03 - 06/10) and 2 doses of IV vanco
- Given large hiatal hernia, dilated esophagus with air-fluid levels cannot rule out recurrent aspiration.
- Afebrile/No leukocytosis/not on supplemental oxygen as of 06/08/2024
- IV vanco DC'd given negative MRSA swab
-All cultures negative so far.
- Pt has difficulty expectorating
-Repeat CT chest without contrast in 4-6 weeks to follow pneumonia to resolution; may need PET/CT for re-staging given her history of right lung adenocarcinoma s/p chemo/XRT; Oncology correspondence reviewed. I will defer further imaging to
oncology.
Not bronchoscpastic on exam 06/09/2024: Difficulty expectorating. Intermittent rhonchi.
- Continue systemic steroids with prednisone --> wean by 10mg every 4th day until back at her home dose of decadron 2mg BID
Upon DC to [facility] - please continue home nebs
- DuoNebs 3 times daily with budesonide BID and prn albuterol for breakthrough symptoms
- Incentive spirometer encouraged.
-Acapella device encouraged.
- Has not required supplemental oxygen with PT
- Oncology correspondence reviewed- outpx eval, eventual PET for restaging.
MRI brain noted. No evidence for new metastatic disease, although cannot rule out recurrent neoplastic disease at the margins of area of encephalomalacia. Recommend continued repeat MRI brain versus comparison to prior studies
- DVT ppx: Eliquis
Dr. Puga updated sister at bedside on 06/08/2024 and 06/09/2024
Patient awaiting discharge to [facility] today. She already follows with us in the office with Dr. Frias, last visit on 10/24/2023. Oupx follow up in 2-3weeks.
Pulmonary service will now sign off. Thank you for allowing us to be involved in the care of this patient. Please reconsult if there are any additional questions/concerns, or if patient's respiratory status deteriorates.

Data:
CTA Chest 06/03/2024:
1. No evidence of pulmonary embolism.
2. Interval progression/recurrence of right lung pulmonary neoplasm with new pulmonary metastatic disease. Probable superimposed infectious/inflammatory bronchiolitis throughout the right lower lobe.
Total time spent today was 35 minutes for this encounter. Time includes reviewing laboratory test/imaging results, reviewing pertinent medical records, obtaining and reviewing medical history, performing an appropriate exam, ordering medications,
tests and procedures. Time also includes documentation of this encounter, coordinating patient care and communicating with other healthcare professionals. Total time does not include separately billed tests performed on this date of service.
Subjective Data
-
Date of Service:
Date of Service: June 10, 2024
Chief Complaint: Pulmonary Follow Up (Pneumonia/recurrent lung cancer)
Subjective:
Patient was seen and evaluated today at bedside. Patient feels well, eager to go home today. Denies chest pain, CHIRINOS, SOB, fevers or chills.
Review of Systems
General: Other (Negative unless mentioned above)
Objective Data
Data Reviewed
Vital Signs / I&O / Oxygen:
Vital Signs
Temp Pulse Resp BP Pulse Ox
97.8 F 99 18 114/81 94
06/10/24 07:58 06/10/24 07:58 06/10/24 07:58 06/10/24 09:34 06/10/24 07:58
Intake and Output
06/09/24 06/10/24 06/11/24
06:59 06:59 06:59
Intake Total 840 / 840 620 / 620
Output Total 950 / 950 500 / 500
Balance -110 / -110 120 / 120
SaO2 94
Nasal Cannula flow liters per 2
minute
Physical Exam
General: Respiratory Distress (negative), Comfortable, Chills (negative), Sweats (negative) and Other (Able to speak in full sentences)
HEENT: Normocephalic and Anicteric
Cardiovascular: S1-S2 and Peripheral Edema (+1 lower extremity edema bilaterally (L >R))
Respiratory: Wheeze (negative), Crackles (Bibasilar (L >R)), Rhonchi (intermittent) and Non-Labored Respirations
GI: Soft, Non Distended, Non Tender and Normal Bowel Sounds
Neurology: AO x 3 and Tremors (negative)
Skin: Warm, Dry and Jaundice (negative)
Labs/Micro/Reports
Lab Data
06/10/24 06:27
06/10/24 06:27
Microbiology
06/03/24 19:05 Blood/Venous Blood Culture - Final
No Growth - Final Report
06/03/24 19:05 Blood/Venous Blood Culture - Final
No Growth - Final Report
[2024-06-10] MEDS: ProAmatine PO ×2 (09:34→12:38)
[2024-06-10] MEDS: DESENEX/MITRAZOL/ZEASORB 1 APPLIC TOPICAL (09:35)
[2024-06-10] MEDS: ELIQUIS 5 MG PO (09:39)
[2024-06-10] MEDS: PACERONE 200 MG PO (09:39)
[2024-06-10] MEDS: LASIX 20 MG PO (09:39)
[2024-06-10] MEDS: KEPPRA 500 MG PO (09:40)
[2024-06-10] MEDS: DELTASONE 30 MG PO (09:40)
[2024-06-10] MEDS: PROTONIX 40 MG PO (09:41)
--- NOTE | 2024-06-10 11:05 | CM ---
MD indicated discharge today.
No beds at [facility]
Leo at [facility] said bed available.
Pt on room air .
Spoke with sister Isela [phone] she agreed with dc today to SNF.
[place] agreed with IMM letter and to pay for [facility]. Number provided for acute care [facility] [phone] for payment.
Transport form completed
[facility]
Report: [phone]

PLAN To [facility] today
[2024-06-10 11:39] LABS: Glucose - Point of Care 269 mg/dl (70-99)
[2024-06-10 12:08] VITALS: BP 121/79
--- NOTE | 2024-06-10 12:33 | W.PN.HOSP.TC ---
Today's Communication/Plan
-
dc to SNF
Assessment / Plan
Assessment / Plan
Acute hypoxic respiratory insufficiency likely secondary to patient with likely recurrent metastatic lung ca with super-imposed infection, most likely aspiration PNA, possibly obstructive PNA and AECOPD
Sepsis likely 2/2 pna-poa
Bandemia resolved
- Tried on oral abx as an outpatient for 2 weeks with no improvements. Negative COVID.
- Blood cultures in lab negative so far . Urine Legionella negative.
- MRSA screen negative. DC Vanco. Change cefepime to Augmentin bid
Will change to oral abx at time of dc as discussed with Dr. Puga
- supportive care with supplemental oxygen and cough suppression
- incentive spirometry. Negative for pulmonary embolism.
- pulmonary consulted, discussed with Dr. Puga
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
-History of Lung CA in remission s/p radiation and chemotherapy. w/mets to brain s/p requiring steroids, stereotactic radiosurgery 2021.
- Followed by Dr. Arango. Last CT was free of Ca about 6 months ago. But has been having a subacute to chronic non-productive cough that turned productive 4/5 days ago. No hemoptysis.
- CT chest showing Redemonstration of medial right upper lobe/perihilar scarring and consolidation with volume loss. There is increased subpleural/tree-in-bud nodularity throughout the right lower lobe. New 1.5 cm spiculated left upper lobe nodule.
Stable small loculated right pleural effusion. No pericardial effusions, or enlarged lymph nodes in the thorax.
- oncology consultation -Recommend OP f/u with Dr. Wheeler with PET/CT prior to visit
- supportive care for now. Continue with keppra
Input of Dr. Ospina appreciated. Pt to have PET/CT scan on ~Jul 02 with f/u with Dr. Wheeler following day
Concern for possible metastatic disease to the brain, MRI just completed:Status post left inferolateral craniotomy. Adjacent encephalomalacia.
There is subtle mild enhancement along the periphery of this focal area of encephalomalacia. This is most likely postsurgical enhancement as a benign finding, but residual/recurrent neoplastic disease at the margins of the area of encephalomalacia
cannot be excluded. If any previous examinations can be obtained, comparison would be useful. If no previous examinations are available, continued MR follow-up would be advised.
Partially empty sella. This is often an incidental finding of no clinical significance, although it does have an association with idiopathic intracranial hypertension. Many patients are asymptomatic and endocrinologically normal, although with some
increasing reports of variable hypopituitarism and hyperprolactinemia.
Moderate diffuse atrophy. Moderate T2 and FLAIR white matter hyperintensities, commonly seen with aging and usually attributed to small vessel ischemic disease. These hyperintensities have not been shown to correlate with a focal neurologic deficit.
Acute COPD exacerbation
Chronic steroids usage
-Started on prednisone taper regimen per pulm, currently 30 mg daily, will resume oral Decadron at time of dc and continue slow wean off Prednisone
-cont with bronchodilators
DM uncontrolled
-POC significantly elevated and worsened due to steroids
-started basal/bolus regiment. Lantus 30 units daily 25 units nightly. Continue with bolus regimen of 10 units insulin sliding scale
-adjust insulin as needed
-A1C at 12.2
Hypotension
-start midodrine low dose and adjust prn
Chronic HFpEF
-Cont lasix 20mg BID home dose
Pseudohyponatremia secondary to hyperglycemia
-resolved.
Paroxysmal atrial fibrillation
- continue amiodarone
- continue eliquis
- Monitor on tele
Esophagus stricture likely secondary to radiation status post dilatation
History of large hiatal hernia
-Monitor symptoms. Cont PPI.
Subclinical hypothyroidism. As per sister, pt was not taking Synthroid and thus will not raise on dc, but will need recheck level
-repeat TFT 4-6 weeks
Suspected ambulatory dysfunction
-PT/OT
DVT PPX - on eliquis
Code Status -Full code (discussed with POA, as per sister, this is what pt wants)
Met with sister (POLee) today, extensive review of situation
PT/OT-plan for SNF on discharge. Input from PT/OT appreciated
[facility], to be on Augmentin. Dr. Puga believes pt has appt with [facility] already set up, he will check on this. Taper Prednisone 10 mg every 5 days
dc now
reviewed with Isela, sister, POA at computer
More than 30 minutes spent in discharge including
Final examination of the patient
Summarizing hospital stay
Instructions for continuing care to all relevant caregivers
Preparation of discharge records, prescriptions, and referral forms
Total time spent (in minutes): 45
Anticipated Discharge: Today
Subjective/Interval History
-
Date of Service: June 10, 2024
In good spirits
Objective Data
-
Labs:
Laboratory Results
06/10/24
06:27
WBC 6.9
Hgb 12.6
Hct 35.6 L
Plt Count 207 D
Sodium 137
Potassium 3.7
Chloride 93 L
Carbon Dioxide 34 H
BUN 27 H
Creatinine 0.8
Glucose 80
Calcium 8.7
Vital Signs:
Vital Signs
Temp Pulse Resp BP Pulse Ox
97.7 F 79 18 121/79 94
06/10/24 12:08 06/10/24 12:08 06/10/24 12:08 06/10/24 12:08 06/10/24 12:08
I&O
06/09/24 06/10/24 06/11/24
06:59 06:59 06:59
Intake Total 840 / 840 620 / 620
Output Total 950 / 950 500 / 500
Balance -110 / -110 120 / 120
Review of Systems
-
History Source: Patient and Family (sister/POA Isela in room with obvious decision maker)
Constitutional: Reports No Symptoms; Denies Fever
EENT: Reports No Symptoms Reported
Respiratory: Reports Cough; Denies Trouble Breathing (better)
Cardiac: Reports No Symptoms; Denies Chest Pain
Abdomen/GI: Reports No Symptoms; Denies Abdominal Pain
Genitourinary: Reports No Symptoms; Denies Dysuria
Neuro: Reports Weakness
Physical Exam
-
General: Well Developed and Appears Chronically Ill
HEENT: Atraumatic and Moist Mucous Membranes; Negative Normocephalic (bruise left side of face, POA, unchanged)
Respiratory: Other (taking deep breaths, rhonchus cough on forced expiration)
Cardiac: Regular Rhythm and S1/S2
GI: Soft, Nontender and Nondistended
Musculoskeletal: No Clubbing, No Cyanosis and No Edema
Neuro: Awake, Alert and Oriented
[2024-06-10] MEDS: NOVOLOG FLEXPEN-MODERATE RESISTANCE 5 UNITS SC (12:35)
--- NOTE | 2024-06-10 15:19 | W.DS.TRANS ---
DC Summary - Strategic Planning Consultant
-
Discharge Instructions:
Sleep Apnea Risk Intermediate
Discharge Diagnosis/Procedures Metastatic Lung Cancer
Diet Regular,Diabetic, Carb Controlled
Activity With assistance
Driving Restrictions No driving
Bathing Restrictions None
Blood Work CBC, CMP in 1 week, glucose Accuchecks ac and
qhs
Others Tests PET/CT scan already scheduled for Jul 02
Instructions:
Stand-Alone Forms:
Changes to Home Medications: Yes
Discharge Medications:
DC Medications w/original date entered in [employer]
apixaban 5 mg tablet (Eliquis) 5 mg PO BID Blood Clot Prevention/Tx #0 tabs 06/19/23
atorvastatin 10 mg tablet 10 mg PO HS High Cholesterol 08/01/23
levothyroxine 112 mcg tablet 112 mcg PO DAILY Thyroid 09/18/23
amiodarone 200 mg tablet 200 mg PO DAILY Arrhythmia 02/23/24
furosemide 20 mg tablet 20 mg PO BID Fluid Retention/Swelling 02/23/24
dexamethasone 2 mg tablet 2 mg PO BID Anti-Inflammatory 06/03/24
ferrous sulfate 220 mg (44 mg iron)/5 mL oral solution 220 mg PO Q48H Supplement 06/03/24
levetiracetam 500 mg tablet 500 mg PO BID Seizures 06/03/24
omeprazole 40 mg capsule,delayed release 40 mg PO TID Gastrointestinal Issue 06/03/24
potassium chloride 20 mEq/15 mL oral liquid 10 meq PO BID Electrolyte Repletion 06/03/24
Insulin Glargine Lantus [Lantus] 25 units As Directed mls/hr SC HS 06/10/24
albuterol sulfate 2.5 mg/3 mL (0.083 %) solution for nebulization 2.5 mg (3 mL) inhalation R Q4HPRN PRN shortness of breath/wheezing #0 mL 06/10/24
amoxicillin 875 mg-potassium clavulanate 125 mg tablet 1 tab PO Q12H #14 tabs 06/10/24
insulin aspart U-100 100 unit/mL (3 mL) subcutaneous pen (Novolog FlexPen U-100 Insulin aspart) 1 sliding scale dose SC AC Diabetes #15 mL 06/10/24
midodrine 5 mg tablet 5 mg PO TID@0800,1300,1800 #90 tabs 06/10/24
prednisone 10 mg tablet 10 mg PO DIRECTED #90 tabs 06/10/24
Home Medication Changes
Augmentin for 7 days
Insulin Lantus and sliding scale added
Prednisone tapering added
midodrine added
Pending Results: No
Additional Pending Results:
Pt will need PET/CT scan done as has been scheduled
== END 2024-06-10 15:29 | DRG 871 ==
LOC: 4 WEST ACU 22:59
PROVIDERS: Emergency Medicine; Hospitalist; Physician Assistant Medical; ADMITTING PHYSICIAN Internal Medicine; ATTENDING PHYSICIAN Internal Medicine; CONSULT PHYSICIAN Internal Medicine Critical Care Medicine; EMERGENCY PHYSICIAN Emergency Medicine; FAMILY PHYSICIAN Family Medicine; OTHER PHYSICIAN Internal Medicine Hematology & Oncology
DX: A41.9 Sepsis, unspecified organism (principal); J18.9 Pneumonia, unspecified organism; J69.0 Pneumonitis due to inhalation of food and vomit; I50.32 Chronic diastolic (congestive) heart failure; J44.0 Chronic obstructive pulmonary disease with (acute) lower respiratory infection; J44.1 Chronic obstructive pulmonary disease with (acute) exacerbation; C34.91 Malignant neoplasm of unspecified part of right bronchus or lung; C79.31 Secondary malignant neoplasm of brain; I48.0 Paroxysmal atrial fibrillation; E11.65 Type 2 diabetes mellitus with hyperglycemia; E03.8 Other specified hypothyroidism; E78.00 Pure hypercholesterolemia, unspecified; E87.6 Hypokalemia; G40.909 Epilepsy, unspecified, not intractable, without status epilepticus; K44.9 Diaphragmatic hernia without obstruction or gangrene; J43.2 Centrilobular emphysema; K21.9 Gastro-esophageal reflux disease without esophagitis; R09.02 Hypoxemia; R06.89 Other abnormalities of breathing; K22.2 Esophageal obstruction; I95.89 Other hypotension; Z11.52 Encounter for screening for COVID-19; Z92.21 Personal history of antineoplastic chemotherapy; Z92.3 Personal history of irradiation; Z87.891 Personal history of nicotine dependence; Z85.841 Personal history of malignant neoplasm of brain; Z85.820 Personal history of malignant melanoma of skin; Z88.2 Allergy status to sulfonamides; Z88.8 Allergy status to other drugs, medicaments and biological substances; Z79.01 Long term (current) use of anticoagulants; Z79.890 Hormone replacement therapy; Z79.899 Other long term (current) drug therapy; Z79.52 Long term (current) use of systemic steroids
CPT/HCPCS: 70553; 71046; 71275; 80048; 80053; 80076; 82947; 82962; 83036; 83605; 83735; 83880; 83930; 83935; 84100; 84145; 84439; 84443; 84484; 85025; 85027; 86803; 87040; 87449; 87641; 87811; 93005; 94640; 96365; 96366; 96375; 97116; 97163; 97167; 97530; 97535; 99285; A9575; Q9967

== ENCOUNTER → 2024-06-17 11:18 | Outpatient (REF) | payer OTHER, MEDICARE, SELFPAY ==
[2024-06-17 11:39] LABS: % Basophils 0.2 % (0-2); % Immature Granulocytes 4.9 % (0-0.5); % Lymphocytes 2.7 % (20.5-51.1); % Monocytes 3.4 % (1.7-9.3); % Neutrophils 88.8 % (42.2-75.2); Absolute Immature Granulocytes 0.5 10^3/uL (0-0.05); Absolute Lymphocytes 0.3 10^3/uL (1.2-3.4); Absolute Monocytes 0.3 10^3/uL (0.1-0.6); Absolute Neutrophils 8.5 10^3/uL (1.4-6.5); Hematocrit 31.2 % (37.0-47.0); Hemoglobin 10.9 g/dL (12.0-16.0); Mean Corp Hgb Conc. 34.9 g/dL (33.0-37.0); Mean Corpuscular Hgb 32.5 pg (27.0-31.0); Mean Corpuscular Volume 93.1 fL (81.0-99.0); Mean Platelet Volume 9.9 fL (7.4-10.4); Nucleated Red Blood Cells % 0.5 %; Platelet Count 194 10^3/uL (130-400); Red Blood Cell Count 3.35 10^6/uL (4.20-5.40); Red Cell Dist. Width 17.2 % (11.5-14.5); White Blood Cell Count 9.6 10^3/uL (4.8-10.8)
[2024-06-17 11:56] LABS: ALT (SGPT) 47 U/L (0-35); AST (SGOT) 21 U/L (14-36); Alkaline Phosphatase 75 U/L (38-126); Blood Urea Nitrogen 28 mg/dl (7-17); Calcium 8.6 mg/dl (8.4-10.2); Carbon Dioxide 32 mmol/L (22-30); Chloride 97 mmol/L (98-107); Glucose 161 mg/dl (70-99); Potassium 4.3 mmol/L (3.5-5.1); Sodium 137 mmol/L (135-145); Total Bilirubin 0.6 mg/dl (0.2-1.3); Total Protein 5.1 g/dl (6.3-8.2); eGFR > 60.00
== END ==
LOC: OLABN 11:18
PROVIDERS: ATTENDING PHYSICIAN Student in an Organized Health Care Education/Training Program
DX: I49.9 Cardiac arrhythmia, unspecified (principal); I95.9 Hypotension, unspecified; C78.00 Secondary malignant neoplasm of unspecified lung
CPT/HCPCS: 36415; 80053; 85025

== ENCOUNTER → 2024-06-24 11:36 | Outpatient (REF) | payer OTHER, MEDICARE, SELFPAY ==
[2024-06-24 12:30] LABS: Blood Urea Nitrogen 52 mg/dl (7-17); Calcium 9.5 mg/dl (8.4-10.2); Carbon Dioxide 28 mmol/L (22-30); Chloride 97 mmol/L (98-107); Glucose 405 mg/dl (70-99); Magnesium 2.3 mg/dl (1.6-2.3); Potassium 5.3 mmol/L (3.5-5.1); Sodium 137 mmol/L (135-145)
== END ==
LOC: OLABN 11:36
PROVIDERS: ATTENDING PHYSICIAN Student in an Organized Health Care Education/Training Program
DX: I50.32 Chronic diastolic (congestive) heart failure (principal)
CPT/HCPCS: 36415; 80048; 83735

== ENCOUNTER → 2024-06-30 11:31 | Outpatient (REF) | payer OTHER, MEDICARE, SELFPAY ==
[2024-06-30 11:54] LABS: % Basophils 0.8 % (0-2); % Eosinophils 1.1 % (0-6); % Immature Granulocytes 2.3 % (0-0.5); % Lymphocytes 4.2 % (20.5-51.1); % Monocytes 3.8 % (1.7-9.3); % Neutrophils 87.8 % (42.2-75.2); Absolute Eosinophils 0.1 10^3/uL (0-0.7); Absolute Immature Granulocytes 0.1 10^3/uL (0-0.05); Absolute Lymphocytes 0.2 10^3/uL (1.2-3.4); Absolute Monocytes 0.2 10^3/uL (0.1-0.6); Absolute Neutrophils 4.1 10^3/uL (1.4-6.5); Hematocrit 27.7 % (37.0-47.0); Hemoglobin 9.8 g/dL (12.0-16.0); Mean Corp Hgb Conc. 35.4 g/dL (33.0-37.0); Mean Corpuscular Hgb 33.4 pg (27.0-31.0); Mean Corpuscular Volume 94.5 fL (81.0-99.0); Mean Platelet Volume 10.1 fL (7.4-10.4); Nucleated Red Blood Cells % 0 %; Platelet Count 169 10^3/uL (130-400); Red Blood Cell Count 2.93 10^6/uL (4.20-5.40); Red Cell Dist. Width 19.9 % (11.5-14.5); White Blood Cell Count 4.7 10^3/uL (4.8-10.8)
[2024-06-30 12:06] LABS: Blood Urea Nitrogen 20 mg/dl (7-17); Calcium 8.1 mg/dl (8.4-10.2); Carbon Dioxide 36 mmol/L (22-30); Chloride 94 mmol/L (98-107); Glucose 46 mg/dl (70-99); Potassium 3.1 mmol/L (3.5-5.1); Sodium 135 mmol/L (135-145); eGFR > 60.00
== END ==
LOC: OLABN 11:31
PROVIDERS: ATTENDING PHYSICIAN Student in an Organized Health Care Education/Training Program
DX: I50.32 Chronic diastolic (congestive) heart failure (principal)
CPT/HCPCS: 36415; 80048; 85025

== ENCOUNTER → 2024-07-02 11:33 | Outpatient (REF) | payer OTHER, MEDICARE, SELFPAY ==
[2024-07-02 13:50] LABS: Blood Urea Nitrogen 19 mg/dl (7-17); Calcium 8.2 mg/dl (8.4-10.2); Carbon Dioxide 39 mmol/L (22-30); Chloride 94 mmol/L (98-107); Glucose 86 mg/dl (70-99); Sodium 135 mmol/L (135-145); eGFR > 60.00
== END ==
LOC: OLABN 11:33
PROVIDERS: ATTENDING PHYSICIAN Student in an Organized Health Care Education/Training Program
DX: E87.6 Hypokalemia (principal)
CPT/HCPCS: 36415; 80048

== ENCOUNTER → 2024-07-08 11:15 | Outpatient (REF) | payer OTHER, MEDICARE, SELFPAY ==
[2024-07-08 12:03] LABS: Free T3 1.72 pg/ml (2.77-5.27); Free T4 1.29 ng/dl (0.78-2.19)
[2024-07-10 02:44] LABS: Total T3 (Sendout) 37 ng/dL (80-200)
== END ==
LOC: OLABN 11:15
PROVIDERS: ATTENDING PHYSICIAN Student in an Organized Health Care Education/Training Program
DX: E03.9 Hypothyroidism, unspecified (principal)
CPT/HCPCS: 36415; 84439; 84443; 84480; 84481

== ENCOUNTER → 2024-07-23 09:17 | Outpatient (REF) | payer OTHER, MEDICARE, SELFPAY ==
[2024-07-23 09:29] LABS: APTT 39.5 Sec (23.4-35.0); PT 18.9 Sec (11.4-14.6)
== END ==
LOC: OLABN 09:17
PROVIDERS: ATTENDING PHYSICIAN Student in an Organized Health Care Education/Training Program
DX: C34.91 Malignant neoplasm of unspecified part of right bronchus or lung (principal); I48.0 Paroxysmal atrial fibrillation
CPT/HCPCS: 36415; 85610; 85730

== ENCOUNTER → 2024-07-26 15:11 | Outpatient (REF) | payer OTHER, MEDICARE, SELFPAY | LOC: HWRAD 15:11 | PROVIDERS: ATTENDING PHYSICIAN Internal Medicine Critical Care Medicine; FAMILY PHYSICIAN Family Medicine | DX: C34.91 Malignant neoplasm of unspecified part of right bronchus or lung (principal) | CPT/HCPCS: 71250 ==

== ENCOUNTER 2024-07-28 06:56 | Day surgery (SDC) | payer MEDICARE, OTHER, SELFPAY ==
--- NOTE | 2024-07-27 14:48 | SUR.OPER ---
Patients 07/23 INR 1.6- message left for Martina @ Dr. Marques office
[2024-07-28] VITALS (7 sets, daily range): BP systolic 100–111; BP diastolic 52–67; BMI 28.1
[2024-07-28 11:00] LABS: Glucose - Point of Care 94 mg/dl (70-99)
[2024-07-28] MEDS: DUONEB 3 ML INH (11:03)
[2024-07-28 11:59] LABS: Glucose - Point of Care 108 mg/dl (70-99)
[2024-07-28 13:08] LABS: Glucose - Point of Care 103 mg/dl (70-99)
--- NOTE | 2024-07-28 13:13 | SUR.PHASEI ---
Report to AB Benavides. [id number]. Awais mendez RN BSN.
== END 2024-07-28 14:25 | disposition home or self-care (01) ==
LOC: SDS 06:56
PROVIDERS: ATTENDING PHYSICIAN Internal Medicine Critical Care Medicine
DX: R91.1 Solitary pulmonary nodule (principal); R59.0 Localized enlarged lymph nodes; L53.8 Other specified erythematous conditions
CPT/HCPCS: 31629; 31624; 31623; 31627; 31652; 31654; 88173; 88305; 71045; 76000; 82962; 87015; 87070; 87102; 87116; 87205; 88112; 88341; 88342; 94640; C1887

== ENCOUNTER → 2024-08-17 09:08 | Outpatient (REF) | payer MEDICARE, OTHER, SELFPAY ==
[2024-08-17 11:05] LABS: Free T4 2.64 ng/dl (0.78-2.19)
[2024-08-17 11:19] LABS: TSH 1.23 uIU/ml (0.47-4.68)
== END ==
LOC: OLABN 09:08
PROVIDERS: ATTENDING PHYSICIAN Student in an Organized Health Care Education/Training Program
DX: E03.9 Hypothyroidism, unspecified (principal)
CPT/HCPCS: 36415; 84439; 84443

== ENCOUNTER → 2024-08-26 10:32 | Outpatient (REF) | payer MEDICARE, OTHER, SELFPAY ==
[2024-08-26 11:18] LABS: % Basophils 0.4 % (0-2); % Eosinophils 0.4 % (0-6); % Immature Granulocytes 0.5 % (0-0.5); % Lymphocytes 3.6 % (20.5-51.1); % Monocytes 10.1 % (1.7-9.3); Absolute Lymphocytes 0.3 10^3/uL (1.2-3.4); Absolute Monocytes 0.8 10^3/uL (0.1-0.6); Absolute Neutrophils 6.9 10^3/uL (1.4-6.5); Hematocrit 31.5 % (37.0-47.0); Hemoglobin 10.7 g/dL (12.0-16.0); Mean Corpuscular Hgb 30.6 pg (27.0-31.0); Mean Platelet Volume 10.6 fL (7.4-10.4); Nucleated Red Blood Cells % 0 %; Platelet Count 234 10^3/uL (130-400); Red Cell Dist. Width 14.5 % (11.5-14.5); White Blood Cell Count 8.1 10^3/uL (4.8-10.8)
== END ==
LOC: OLABN 10:32
PROVIDERS: ATTENDING PHYSICIAN Student in an Organized Health Care Education/Training Program
DX: I49.9 Cardiac arrhythmia, unspecified (principal)
CPT/HCPCS: 36415; 85025

== ENCOUNTER → 2024-10-01 10:46 | Outpatient (REF) | payer MEDICARE, OTHER, MEDICAID, SELFPAY | LOC: RAD 10:46 | PROVIDERS: ATTENDING PHYSICIAN Student in an Organized Health Care Education/Training Program | DX: K21.9 Gastro-esophageal reflux disease without esophagitis (principal) | CPT/HCPCS: 74220 ==

== ENCOUNTER → 2024-10-18 12:52 | Outpatient (REF) | payer MEDICARE, OTHER, MEDICAID, SELFPAY ==
[2024-10-18 13:57] LABS: ALT (SGPT) 13 U/L (0-35); AST (SGOT) 24 U/L (14-36); Albumin 3.1 g/dl (3.5-5.0); Alkaline Phosphatase 112 U/L (38-126); Blood Urea Nitrogen 47 mg/dl (7-17); Calcium 8.5 mg/dl (8.4-10.2); Chloride 77 mmol/L (98-107); Glucose 95 mg/dl (70-99); HDL Cholesterol 56 mg/dl; LDL Cholesterol, Calculated 111 mg/dl; Magnesium 1.8 mg/dl (1.6-2.3); Potassium 2.8 mmol/L (3.5-5.1); Sodium 128 mmol/L (135-145); Total Bilirubin 0.5 mg/dl (0.2-1.3); Total Cholesterol 196 mg/dl (50-199); Total Protein 6.1 g/dl (6.3-8.2); Triglyceride 147 mg/dl (10-149); Very Low Density Lipoprotein 29 mg/dl (0-30); eGFR 52.73
[2024-10-18 14:06] LABS: Carbon Dioxide 42 mmol/L (22-30)
[2024-10-18 14:31] LABS: TSH 3.95 uIU/ml (0.47-4.68)
== END ==
LOC: OLABN 12:52
PROVIDERS: ATTENDING PHYSICIAN Student in an Organized Health Care Education/Training Program
DX: C34.90 Malignant neoplasm of unspecified part of unspecified bronchus or lung (principal); E78.5 Hyperlipidemia, unspecified
CPT/HCPCS: 80053; 80061; 83735; 84443

== ENCOUNTER → 2024-10-21 10:52 | Outpatient (REF) | payer MEDICARE, OTHER, MEDICAID, SELFPAY ==
[2024-10-21 11:41] LABS: Blood Urea Nitrogen 55 mg/dl (7-17); Calcium 8.6 mg/dl (8.4-10.2); Chloride 79 mmol/L (98-107); Glucose 80 mg/dl (70-99); Potassium 3.1 mmol/L (3.5-5.1); Sodium 131 mmol/L (135-145); eGFR 43.15
[2024-10-21 12:15] LABS: Carbon Dioxide 44 mmol/L (22-30)
== END ==
LOC: OLABN 10:52
PROVIDERS: ATTENDING PHYSICIAN Student in an Organized Health Care Education/Training Program
DX: E87.6 Hypokalemia (principal)
CPT/HCPCS: 36415; 80048

== ENCOUNTER → 2024-10-25 09:52 | Outpatient (REF) | payer MEDICARE, OTHER, MEDICAID, SELFPAY ==
[2024-10-25 12:01] LABS: Blood Urea Nitrogen 31 mg/dl (7-17); Calcium 8.2 mg/dl (8.4-10.2); Chloride 83 mmol/L (98-107); Glucose 93 mg/dl (70-99); Magnesium 2.3 mg/dl (1.6-2.3); Potassium 3.1 mmol/L (3.5-5.1); Sodium 132 mmol/L (135-145); eGFR 52.73
[2024-10-25 12:15] LABS: Carbon Dioxide 40 mmol/L (22-30)
== END ==
LOC: OLABN 09:52
PROVIDERS: ATTENDING PHYSICIAN Student in an Organized Health Care Education/Training Program
DX: E87.6 Hypokalemia (principal)
CPT/HCPCS: 36415; 80048; 83735

== ENCOUNTER → 2024-10-27 10:14 | Outpatient (REF) | payer MEDICARE, OTHER, MEDICAID, SELFPAY ==
[2024-10-27 11:36] LABS: Blood Urea Nitrogen 28 mg/dl (7-17); Carbon Dioxide 38 mmol/L (22-30); Chloride 87 mmol/L (98-107); Glucose 79 mg/dl (70-99); Magnesium 2.2 mg/dl (1.6-2.3); Potassium 3.3 mmol/L (3.5-5.1); Sodium 132 mmol/L (135-145)
== END ==
LOC: OLABN 10:14
PROVIDERS: ATTENDING PHYSICIAN Student in an Organized Health Care Education/Training Program
DX: E87.6 Hypokalemia (principal)
CPT/HCPCS: 36415; 80048; 83735

== ENCOUNTER → 2024-11-01 10:38 | Outpatient (REF) | payer MEDICARE, OTHER, MEDICAID, SELFPAY ==
[2024-11-01 11:42] LABS: Blood Urea Nitrogen 16 mg/dl (7-17); Calcium 8.6 mg/dl (8.4-10.2); Carbon Dioxide 36 mmol/L (22-30); Chloride 91 mmol/L (98-107); Glucose 74 mg/dl (70-99); Potassium 3.4 mmol/L (3.5-5.1); Sodium 130 mmol/L (135-145); eGFR 59.12
[2024-11-01 13:11] LABS: Cortisol, Random 11.8 ug/dl
== END ==
LOC: OLABN 10:38
PROVIDERS: ATTENDING PHYSICIAN Student in an Organized Health Care Education/Training Program
DX: R68.81 Early satiety (principal); E87.6 Hypokalemia
CPT/HCPCS: 36415; 80048; 82533

== ENCOUNTER → 2024-11-12 09:06 | Outpatient (REF) | payer MEDICARE, OTHER, MEDICAID, SELFPAY | LOC: HWRAD 09:06 | PROVIDERS: ATTENDING PHYSICIAN Student in an Organized Health Care Education/Training Program; FAMILY PHYSICIAN Student in an Organized Health Care Education/Training Program | DX: G93.89 Other specified disorders of brain (principal) | CPT/HCPCS: 70450 ==